=== PATIENT | male | born 1950 | race Caucasian/White ===

== ENCOUNTER 2024-07-15 08:06 | Outpatient (REF) | payer MEDICARE, SELFPAY ==
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
--- NOTE | ~2024-07-15 | MR_ITS ---
EXAMINATION: MR CERVICAL SPINE WITHOUT CONTRAST CLINICAL INFORMATION: Radiculopathy. COMPARISON: None available. TECHNIQUE: MRI of the cervical spine was obtained using routine sequences without contrast. FINDINGS: Craniocervical junction is intact. No bone marrow STIR signal abnormality. Marginal osteophyte formation and disc desiccation C6-7 and to a lesser extent C4-5, C5-6 levels. Grade 1 retrolisthesis, C3-4. Grade 1 anterolisthesis C7-T1. Buckling deformity of the thecal sac at the dorsal aspect secondary to ligamentum flavum hypertrophy, C5-6 and C6-7 levels. C2-3: No cord compression. No disc herniation. No neuroforamina stenosis. C3-4: Broad-based disc osteophyte complex formation. No cord compression. Facet joint hypertrophy. Bilateral neuroforamina narrowing right greater than the left side. C4-5: Broad-based disc osteophyte complex formation. No cord compression. Right facet joint hypertrophy. Right neuroforamina narrowing. C5-6: Central disc herniation resulting in ventral deformity of the spinal cord. No cord signal abnormality. No neuroforamina stenosis. C6-7: Broad-based disc osteophyte complex formation. Ventral deformity of the spinal cord. No cord signal abnormality. Bilateral neuroforamina stenosis. C7-T1: No disc herniation. No neuroforamina stenosis. Small cyst, left perineural. No prevertebral compartment hematoma, mass or fluid collection. Flow-void signal within the main vessels is normal. Left vertebral artery slightly dominant. MR/MR cervical spine wo con IMPRESSION: Central disc herniation C5-6 resulting in ventral spinal cord deformity without cord edema and or myelopathy. Central spinal canal stenosis C5-6 and C6-7 on a multifactorial basis. Bilateral neuroforamina narrowing, C3-4 and C6-7 and right neuroforamina and stenosis C4-5 C3-4 on a multifactorial basis Electronically signed by: Julio Chirinos MD 07/18/2024 09:10 AM EDT
== END 2024-07-15 08:07 | disposition home or self-care (01) ==
LOC: HO.MRI 08:06
PROVIDERS: PCP Physician Assistant Medical; Visit Provider Physician Assistant
DX: M54.12 Radiculopathy, cervical region (principal)
CPT/HCPCS: 72141

== ENCOUNTER → 2024-07-15 09:55 | Outpatient (BNV) | payer MEDICARE, SELFPAY | PROVIDERS: PCP Physician Assistant Medical; Visit Provider Radiology Diagnostic Radiology | DX: M50.822 Other cervical disc disorders at C5-C6 level (principal); M99.61 Osseous and subluxation stenosis of intervertebral foramina of cervical region | CPT/HCPCS: 72141 ==

== ENCOUNTER 2024-08-02 13:10 | Outpatient (REF) | payer MEDICARE, SELFPAY ==
--- NOTE | 2024-08-02 13:15 | EMG_ITS ---
Chief complaint: Numbness on left 3rd and 4th digits, numbness in left worse than right Reason for referral: Evaluate for Carpal Tunnel Syndrome Referred by: Kush VICK Procedure done: Bilateral upper extremities NCS/EMG Precautions and/or limitations: None The limb temperature was monitored continuously and remained between 32-36 degrees C during the performance of the NCS. Nerve Conduction Studies Anti Sensory Summary Table ?Stim Site NR Onset (ms) Norm Onset (ms) Peak (ms) Norm Peak (ms) O-P Amp (?V) Norm O-P Amp Site1 Site2 Delta-0 (ms) Dist (cm) Ivan (m/s) Norm Ivan (m/s) Left Median Anti Sensory (2nd Digit) Wrist ? 4.2 4.7 <3.6 1.1 >10 Wrist 2nd Digit 4.2 14.0 33 Right Median Anti Sensory (2nd Digit) Wrist ? 4.5 4.9 <3.6 1.6 >10 Wrist 2nd Digit 4.5 14.0 31 Left Radial Anti Sensory (Thumb) Forearm ? 1.7 2.3 <3.1 18.0 Forearm Thumb 1.7 0.0 Left Ulnar Anti Sensory (5th Digit) Wrist ? 2.4 3.2 <3.7 10.3 >15.0 Wrist 5th Digit 2.4 14.0 58 Right Ulnar Anti Sensory (5th Digit) Wrist ? 2.7 3.4 <3.7 13.6 >15.0 Wrist 5th Digit 2.7 14.0 52 Motor Summary Table ?Stim Site NR Onset (ms) Norm Onset (ms) O-P Amp (mV) Norm O-P Amp iAmp (mV) Amp (1st) (%) Site1 Site2 Delta-0 (ms) Dist (cm) Ivan (m/s) Norm Ivan (m/s) Left Median Motor (Abd Poll Brev) Wrist ? 4.6 <3.9 6.9 >4.5 8.1 100.0 Elbow Wrist 3.9 19.5 50 >45 Elbow ? 8.5 6.6 7.7 95.7 Right Median Motor (Abd Poll Brev) Wrist ? 5.3 <3.9 9.2 >4.5 10.7 100.0 Elbow Wrist 4.1 20.5 50 >45 Elbow ? 9.4 8.7 10.2 94.6 Left Ulnar Motor (Abd Dig Minimi) Wrist ? 2.4 <3.0 8.9 >5 11.9 100.0 B Elbow Wrist 3.9 20.0 51 >45 B Elbow ? 6.3 8.2 11.5 92.1 A Elbow B Elbow 1.5 10.0 67 >45 A Elbow ? 7.8 8.3 11.8 93.3 Right Ulnar Motor (Abd Dig Minimi) Wrist ? 3.0 <3.0 7.9 >5 11.3 100.0 B Elbow Wrist 3.5 20.5 59 >45 B Elbow ? 6.5 7.5 10.8 94.9 A Elbow B Elbow 1.6 10.0 63 >45 A Elbow ? 8.1 6.9 11.0 87.3 EMG ?Side Muscle Nerve Root Ins Act Fibs Psw Amp Dur Poly Recrt Int Pat Comment Right 1stDorInt Ulnar C8-T1 Nml Nml Nml Nml Nml 0 Nml Complete Right FlexCarRad Median C6-7 Nml Nml Nml Nml Nml 0 Nml Complete Right Biceps Musculocut C5-6 Nml Nml Nml Nml Nml 0 Nml Complete Right Triceps Radial C6-7-8 Nml Nml Nml Nml Nml 0 Nml Complete Right Deltoid Axillary C5-6 Nml Nml Nml Nml Nml 0 Nml Complete Left 1stDorInt Ulnar C8-T1 Nml Nml Nml Nml Nml 0 Nml Complete Left FlexCarRad Median C6-7 Nml Nml Nml Nml Nml 0 Nml Complete Left Biceps Musculocut C5-6 Nml Nml Nml Nml Nml 0 Nml Complete Left Triceps Radial C6-7-8 Nml Nml Nml Nml Nml 0 Nml Complete Left Deltoid Axillary C5-6 Nml Nml Nml Nml Nml 0 Nml Complete FINDINGS: Bilateral median motor nerves showed prolonged distal latency, normal amplitude and normal conduction velocity. Bilateral median sensory nerves showed prolonged peak latency and small amplitude. All other nerves tested were within normal. Concentric needle EMG was performed in selected muscles of the bilateral upper extremities. Study did not reveal signs of electric abnormalities as shown in the table above. IMPRESSION: 1. This is an abnormal study. 2. There is electrodiagnostic evidence for bilateral moderate-severe median neuropathy at the wrist, consistent with carpal tunnel syndrome. 3. There is no electrodiagnostic evidence for ulnar neuropathy, brachial plexopathy, or cervical radiculopathy. Thank you for your kind referral. Sheeba Minor MD, WILLOW Board Certified, [place] Board of [employer] Medicine and Rehabilitation (ABPMR) Board Certified, [place] Board of Electrodiagnostic Medicine (ABEM) CODIN [phone] x 2 MTDD
--- OUTSIDE RECORDS SUMMARY | 2024-08-02 15:15 | XMS_ITS | Clinical Summary ---
Author Organization [facility] Address [address] [place] [address] Care Team Providers Care Weld Fitter Name Role Phone Unavailable Primary Care Provider Unavailabl e Social History Tobacco Use Types Packs/Day Years Used Date Smoking Tobacco: Never Assessed Sex and Gender Information Value Date Recorded Sex Assigned at Not on file Gender Identity Not on file Sexual Orientation Not on file Job Start Date Occupation Industry Not on file Not on file Not on file Plan of Treatment Health Maintenance Due Date Last Done Comments Hepatitis C Screening 1950 Depression Screening 1961 Preventative Health Evaluation 10/16/1967 Colon Cancer Screening (Colonoscopy) 1994 DTap / Tdap / Td (1 - Tdap) 02/18/2007 02/17/2007, 0 12/11/2002 Fall Risk Assessment 2014 COVID-19 Vaccine ( season) 2023 09/02/2022, 12/31/2021, 09/04/2021, Additional history exists Influenza Vaccine (#1) 2023 , 12/22/2021, 01/11/2021, Additional history exists Shingrix-Zoster Vaccine Completed 03/14/2018, 01/10 RSV Adult > 60+ Yrs or Completed 02/16/2023 Pneumococcal Vaccine Completed 03/11/2023, 12/03/2016, 12/02/2015 Hepatitis B Vaccines Aged Out No long er eligible based on patient's age to complete this topic RSV Ped < 20 months Aged Out No longe r eligible based on patient's age to complete this topic
== END 2024-08-02 13:11 | disposition home or self-care (01) ==
LOC: HO.NEURO 13:10
PROVIDERS: PCP Physician Assistant Medical; Visit Provider Physician Assistant
DX: G56.13 Other lesions of median nerve, bilateral upper limbs (principal)
CPT/HCPCS: 95860; 95886; 95911

== ENCOUNTER → 2024-08-02 13:16 | Outpatient (BNV) | payer MEDICARE, SELFPAY | PROVIDERS: PCP Physician Assistant Medical; Visit Provider Physical Medicine & Rehabilitation | DX: G56.03 Carpal tunnel syndrome, bilateral upper limbs (principal) | CPT/HCPCS: 95886; 95911 ==

== ENCOUNTER 2024-12-12 14:42 | Outpatient (AMB) | payer MEDICARE, OTHER, SELFPAY ==
--- OUTSIDE RECORDS SUMMARY | 2024-12-12 16:03 | XMS_ITS | Clinical Summary ---
Author Organization [facility] Address [address] [place] [address] Care Team Providers Care Eyeglass Frame Truer Name Role Phone Unavailable Primary Care Provider [...] 09/04/2021, Additional history exists Influenza Vaccine (#1) 2024 , 12/22/2021, 01/11/2021, Additional history exists Shingrix-Zoster [...]
== END 2024-12-12 14:49 | disposition home or self-care (01) ==
LOC: HO.HMGAL 14:42
PROVIDERS: PCP Physician Assistant Medical; Visit Provider Registered Nurse Emergency
DX: J30.89 Other allergic rhinitis (principal)
CPT/HCPCS: 95117; 95165

== ENCOUNTER 2025-01-10 11:39 | Outpatient (AMB) | payer MEDICARE, OTHER, SELFPAY ==
--- OUTSIDE RECORDS SUMMARY | 2025-01-10 15:01 | XMS_ITS | Clinical Summary ---
Author Organization [employer] [facility] Address [address] [place] [address] Care Team Providers Care Residential Property Manager Name Role Phone Unavailable Primary Care Provider [...] Risk Assessment 2014 COVID-19 Vaccine ( season) 2024 09/02/2022, 12/31/2021, 09/04/2021, Additional history exists Influenza [...]
== END 2025-01-10 11:40 | disposition home or self-care (01) ==
LOC: HO.HMGAL 11:39
PROVIDERS: PCP Internal Medicine; Visit Provider Registered Nurse Emergency
DX: J30.89 Other allergic rhinitis (principal)
CPT/HCPCS: 95117; 95165

== ENCOUNTER 2025-02-14 11:27 | Outpatient (AMB) | payer MEDICARE, OTHER, SELFPAY ==
--- OUTSIDE RECORDS SUMMARY | 2025-02-14 15:47 | XMS_ITS | Clinical Summary ---
Author Organization [facility] Address [address] [place] [address] Care Team Providers Care Copywriter Name Role Phone Unavailable Primary Care Provider [...]
== END 2025-02-14 11:31 | disposition home or self-care (01) ==
LOC: HO.HMGAL 11:27
PROVIDERS: PCP Internal Medicine; Visit Provider Registered Nurse Emergency
DX: J30.89 Other allergic rhinitis (principal)
CPT/HCPCS: 95117; 95165

== ENCOUNTER 2025-03-21 12:38 | Outpatient (AMB) | payer MEDICARE, OTHER, SELFPAY ==
--- OUTSIDE RECORDS SUMMARY | 2025-03-21 15:38 | XMS_ITS | Clinical Summary ---
Author Organization [facility] Address [address] [place] [address] Care Team Providers Care Recyclable Products Sorter Name Role Phone Unavailable Primary Care Provider [...]
== END 2025-03-21 12:38 | disposition home or self-care (01) ==
LOC: HO.HMGAL 12:38
PROVIDERS: PCP Internal Medicine; Visit Provider Registered Nurse Emergency
DX: J30.89 Other allergic rhinitis (principal)
CPT/HCPCS: 95117; 95165

== ENCOUNTER 2025-03-27 14:12 | Outpatient (AMB) | payer MEDICARE, OTHER, SELFPAY ==
[2025-03-27 14:17] VITALS: BMI 24.0
--- NOTE | 2025-03-27 14:17 | A.PHYSOV_ITS ---
Vital Signs 03/27/25 14:17 Height 5 ft 8 in Weight 158 lb BMI 24.0 Intake Visit Reasons: NPV VMA Ref- cervical radiculopathy Intake Note: Patient is a 74 year old male here for a follow up today regarding pain upper extremities. Online Media Buyer Required: No Allergies No Known Allergies Allergy (Verified 03/27/25 14:20) HPI Comments Details: History of Present Illness The patient is a 74 year old individual presenting with worsening symptoms, thought to be carpal tunnel syndrome, which are not getting better. The patient was initially seen by a PA who suspected carpal tunnel syndrome and provided wrist braces. The patient is active and works outdoors, and notes that symptoms can migrate to the elbows with overexertion. Symptoms have progressed to the point of disturbing sleep, requiring the patient to sleep on their back to avoid discomfort in the arms. Symptoms are particularly bad at night and upon waking in the morning, with a sensation of numbness and the hand feeling like a tourniquet was around the wrist. The patient continues to use wrist braces at night to prevent the hands from getting into a twisted position. Previous workup includes an MRI of the neck, which showed some compression, and an EMG, which confirmed a diagnosis of moderate to severe carpal tunnel syndrome. The patient did not return for a follow-up appointment after these tests were completed. The patient reports that symptoms were not severe for a while but worsened over the summer. Past medical history is negative for diabetes. The patient has a history of environmental allergies and receives allergy shots. Pain Description - Location and Radiation: The pain is primarily in the hands and fingers, sometimes migrating to the elbows with overactivity. - Quality and Character: The patient describes numbness in the fingertips and a sensation like a tourniquet around the wrists, particularly in the morning. - Onset and Timing: Symptoms are worse at night, disrupting sleep, and in the morning upon waking. - Exacerbating Factors: Symptoms are worsened by overdoing physical activity, such as yard work. - Relieving Factors: The patient wears wrist braces to bed. - Interference with ADLs: Symptoms interfere with sleep, forcing the patient to sleep flat on their back. - Associated Symptoms: The patient also reports occasional mild tension along the back left side of the neck. Procedure: Bilateral carpal tunnel injection 03/27/2025 PFSH Surgical History Hydrocele H/O hernia repair Social History Alcohol intake: current Alcohol intake frequency: does not drink Patient Tobacco Use Status: Never used Tobacco Review of Systems Narrative Review of Systems - Musculoskeletal: Reports pain in hands and fingers that can migrate to the elbows. - Neurological: Reports numbness in fingertips and a tourniquet-like sensation around the wrists, which is worse at night and in the mornings. - Constitutional: Denies being diabetic. - Allergy/Immunology: Reports environmental allergies. Physical Exam Exam Exam: Physical Exam Cervical Spine: Examination of the cervical spine, there is no visible swelling or deformity. He is nontender to palpation. Full range of motion of the cervical spine. Special Tests: Axial Compression test: Negative Spurlings test: Negative Lhermitte's sign is Negative Upper Extremities: Full range of motion bilateral upper extremities. Equal way inspector strength bilaterally. Positive Tinel test bilaterally. Neuro: Sensation: Intact to upper extremities bilateral to light touch Strength C5 (Elbow Flexion): 5/5 on the left and 5/5 on the right. C6 (Elbow Ext): 5/5 on the left and 5/5 on the right. C7 (Elbow Ext): 5/5 on the left and 5/5 on the right. C8 (Finger Flex): 5/5 on the left and 5/5 on the right. T1 (Finger Abd/Add): 5/5 on the left and 5/5 on the right. DTR: C5 (Biceps): Left 2 Right 2 C6 (Brachioradialis): Left 2 Right 2 C7 (Triceps): Left 2 Right 2 Mena sign: Negative No pathologic clonus. No involuntary movement. Vital Signs: BMI result Body Mass Index 24.0 Office Procedures AMB Carpal Tunnel Injection AMB Carpal Tunnel Injection Details: Bilateral Carpal tunnel injection. Patient was educated about the risks, complications and benefits of the procedure including but not limited to increased serum glucose, infection, nerve damage, bleeding, tendon/ligament damage and pain. Patient's questions were answered. Verbal consent was obtained. I cleansed the volar aspect of the wrist in line with the fourth digit, 1 cm proximal to the crease of the left wrist with Betadine, 20 mg of Kenalog was injected into the carpal tunnel with a 25-gauge needle. Patient denied any paresthesia. The patient tolerated the procedure well without immediate complication. Patient was cleansed with alcohol prep and a Band-Aid was applied. The procedure was repeated on the right. Carpal Tunnel Injection -: Bilateral All charges added?: Procedure code (CPT) selection complete Office Meds Kenalog 40 mg/mL suspension for injection Performing Provider: NICANOR Reich Performing Location: [facility] Administered by: NICANOR Reich on 03/27/25 15:22 Dose Route Admin Location Dispensed Lot Number Expiration Date ND Data Support Analyst 20 mg intra-articular 1 mL [address]-0 [employer] Total Dispensed Waste 1 mL 50 % Assessment & Plan Assessment & Plan (1) Cervical radiculopathy: Code(s): M54.12 - Radiculopathy, cervical region Category: Medical (2) Cervical spondylosis: Code(s): M47.812 - Spondylosis without myelopathy or radiculopathy, cervical region Category: Medical (3) Carpal tunnel syndrome: Code(s): G56.00 - Carpal tunnel syndrome, unspecified upper limb Category: Medical Qualifiers: Laterality: bilateral Qualified Code(s): G56.03 - Carpal tunnel syndrome, bilateral upper limbs Plan Pain Management - Affect: Pain and numbness disrupt the patient's sleep. - Analgesia: The patient uses wrist braces at night as a non-pharmacologic intervention. - Activities of Daily Living: The patient remains active with outdoor work, but this can exacerbate symptoms. Plan Patient was informed and verbally consented to the use of an ambient scribe for clinic note documentation during this visit. 1. Bilateral Carpal Tunnel Syndrome The patient presents with symptoms and EMG findings consistent with moderate to severe carpal tunnel syndrome, which is the most likely cause of the hand numbness and pain, especially at night. While a pinched nerve in the neck is a possibility given the MRI findings, it is clinically preferable to first treat the peripheral nerve entrapment in the wrist as it is safer and will help clarify the source of the symptoms. Bilateral carpal tunnel injections with a steroid will be performed today to decrease inflammation around the median nerve. The patient was informed of the risks, including infection, bleeding, and nerve damage, and provided consent. Follow-up is scheduled in one to two months to assess the degree of symptom improvement and determine if further treatment for other potential pain generators, such as the neck or shoulders, is necessary. 2. Cervical Spondylosis The patient's neck MRI shows multilevel degenerative changes, including disc bulges and arthritis, but there is no obvious pinched nerve to clearly explain the arm symptoms. It is difficult to differentiate symptoms originating from the neck versus the wrist at this time. Intervention for the neck will be deferred at this time. The plan is to employ a layered approach, first treating the confirmed bilateral carpal tunnel syndrome and then reassessing any residual symptoms that may be attributable to the cervical spine. Discussion Notes I had a detailed discussion with the patient regarding the diagnostic dilemma of differentiating neck versus wrist pathology. I explained that while the patient's neck MRI does show pathology, the clinical picture and EMG results are strongly indicative of moderate to severe carpal tunnel syndrome. I recommended starting treatment with bilateral carpal tunnel injections, explaining that this is a safer initial approach than neck injections and will help clarify the primary source of the symptoms. I reviewed the risks of the procedure, including infection, bleeding, and nerve damage, and noted the benefit of potential symptom relief. I informed the patient that only a steroid would be used, without a local anesthetic, so there would be no immediate numbness affecting the patient's ability to drive. The patient understood the rationale and consented to proceed with both injections today. I emphasized the importance of returning for follow-up in one to two months to assess the outcome and plan the next steps. Patient Instructions - Today you will receive steroid injections in both of your wrists to help with your hand pain and numbness. - These injections reduce swelling around the nerve and should help your symptoms. - You may have some soreness in your wrists after the shots, similar to getting a shot in your shoulder. - There is a small risk of infection, bleeding, or nerve damage with this procedure. - Please schedule a follow-up appointment in about one to two months to see how you are doing and plan our next steps. - It is very important that you come to your follow-up visits so that we can effectively manage your condition. Orders: Orders AMB Carpal Tunnel Injection Today G56.00 - Carpal tunnel syndrome, unspecified upper limb Coding Level of Care Code Tele Est Pt Level 3 (26490) Diagnoses Cervical radiculopathy M54.12 Cervical spondylosis M47.812 Bilateral carpal tunnel syndrome G56.03 Laterality: bilateral CPT Codes AMB Carpal Tunnel Injection - Carpal Tunnel Therapeutic Injection - : Bilateral ([id number])
--- OUTSIDE RECORDS SUMMARY | 2025-03-27 16:14 | XMS_ITS | Continuity of Care Document ---
Author Organization [facility], Main Office Address [address] [facility] [place] [address] [place] [address] Care Team Providers Care Toll Test Desk Worker Name Role Phone RAGHAV BROCK Primary Care Provider SHAWNEE GALLAGHER Assistant To The Director JADIEL HILL Ui Developer Designer [phone] DAYTON GUADARRAMA Urologist ROJELIO BARRY Urologist MELLISA SANCHEZ Passenger Solicitor [facility] Referring Provider [phone] Assessment No assessment recorded. Plan of Treatment Reminders Order Date Submit Date Provider Last Modified By Organization Details Last Modified Time Details Appointments [id number] 2025 10:30A M Rahgav spangler MD Not available Not available Not available Lab None recorded. Referral behaviora l health referral 2024 025 [facility], [address] [place], [address], 03/20/2025 16:45:25 Procedures None recorded. Surgeries None recorded. Imaging None recorded. Medication Orders None recorded. Patient TargetsNo targets recorded. Patient InstructionsNo instructions recorded. Reason for Referral Behavioral Health Referral f or Difficulty coping Referring Physician: Raghav Brock, Family Medicine, Encounter Date: 03/20/2025 Problems Name Problem SNOMED Code Status Onset Date Resolution Date Notes Provider Name and Address Organization Details Recorded Time Onychomy cosis 344827386 Active Not Available [facility] 0 11:38:13 Atherosc lerosis Active Not Available [facility] 0 11:38:13 Suspecte d COVID-19 107569917 Completed 02/18/2021 Removal Reason: Problem added by user [email or web address] from the COVID-19 watch flag [facility] 1 13:35:14 General examinat ion of patient Completed 200711/14/2013 RECORDED 09/02/19 08 9:24AM BY RAGHAV JOHNSON MD, ANNOTATI ON/ADDEN DUM Not Available [facility] 4 14:12:59 Administ ration of bacteria l and viral vaccine Completed 200711/14/2013 RECORDED 09/02/19 08 9:24AM BY RAGHAV JOHNSON MD, ANNOTATI ON/ADDEN DUM Not Available [facility] 4 14:12:59 Administ ration of diphther ia and tetanus vaccine Completed 200711/14/2013 RECORDED 09/02/19 08 9:24AM BY RAGHAV JOHNSON MD, ANNOTATI ON/ADDEN DUM Not Available [facility] 4 14:12:59 General examinat ion of patient Completed 200712/04/2013 RECORDED 09/02/19 08 9:24AM BY RAGHAV JOHNSON MD, ANNOTATI ON/ADDEN DUM Not Available [facility] 4 06:36:52 Administ ration of bacteria l and viral vaccine Completed 200712/04/2013 RECORDED 09/02/19 08 9:24AM BY RAGHAV JOHNSON MD, ANNOTATI ON/ADDEN DUM Not Available [facility] 4 06:36:52 Administ ration of diphther ia and tetanus vaccine Completed 200712/04/2013 RECORDED 09/02/19 08 9:24AM BY RAGHAV JOHNSON MD, ANNOTATI ON/ADDEN DUM Not Available [facility] 4 06:36:52 Inguinal hernia 412041055 Completed 200811/14/2013 RESOLVED DATE: 09/13/19 09; RECORDED 09/13/19 09 5:17PM BY RAGHAV JOHNSON MD, ANNOTATI ON/ADDEN DUM Not Available [facility] 4 14:12:59 Inguinal hernia 335252921 Completed 200812/04/2013 RESOLVED DATE: 09/13/19 09; RECORDED 09/13/19 09 5:17PM BY RAGHAV JOHNSON MD, ANNOTATI ON/ADDEN DUM Not Available [facility] 4 06:36:52 Hyperlip idemia 96949645 Completed 200911/14/2013 RECORDED 11/12/19 10 1:09PM BY ROSIE OTOOLE MA, ANNOTATI ON/ADDEN DUM [facility] 8 09:01:30 Hyperlip idemia 54584751 Completed 200912/04/2013 RECORDED 11/12/19 10 1:09PM BY ROSIE OTOOLE MA, ANNOTATI ON/ADDEN DUM EMMIE Aguirre, [facility] 8 09:01:30 Lateral epicondy litis 889523441 Completed 201111/14/2013 RECORDED 12/16/19 12 12:55PM BY LASHAE TAYLOR ON/ADDEN DUM Not Available [facility] 4 14:12:59 Eruption [id number] Completed 201111/14/2013 RECORDED 12/16/19 12 12:54PM BY NINA TAYLORATI ON/ADDEN DUM Not Available [facility] 4 14:12:59 Adult health examinat ion Completed 201111/14/2013 RECORDED 12/16/19 12 12:54PM BY JEANIE LYN I ANNOTATI ON/ADDEN DUM Not Available [facility] 4 14:12:59 Lateral epicondy litis 052796636 Completed 201112/04/2013 RECORDED 12/16/19 12 12:55PM BY JEANIE SCHULTZK I, ANNOTATI ON/ADDEN DUM Not Available [facility] 4 06:36:52 Eruption [id number] Completed 201112/04/2013 RECORDED 12/16/19 12 12:54PM BY NINA TAYLORATI ON/ADDEN DUM Not Available [facility] 4 06:36:52 Adult health examinat ion Completed 201112/04/2013 RECORDED 12/16/19 12 12:54PM BY NINA TAYLORATI ON/ADDEN DUM Not Available [facility] 4 06:36:52 Influenz a vaccine needed [id number] 06 Completed 201311/14/2013 RECORDED 05/03/19 14 11:14AM BY RITCHIE HERNANDEZ MA, ANNOTATI ON/ADDEN DUM Not Available [facility] 4 14:12:59 Administ ration of diphther ia, pertussi s, and tetanus vaccine Completed 201311/14/2013 RECORDED 05/03/19 14 11:14AM BY RITCHIE HERNANDEZ MA, ANNOTATI ON/ADDEN DUM Not Available [facility] 4 14:13:00 Influenz a vaccine needed [id number] 06 Completed 201312/04/2013 RECORDED 05/03/19 14 11:14AM BY RITCHIE HERNANDEZ MA, ANNOTATI ON/ADDEN DUM Not Available [facility] 4 06:36:52 Administ ration of diphther ia, pertussi s, and tetanus vaccine Completed 201312/04/2013 RECORDED 05/03/19 14 11:14AM BY RITCHIE HERNANDEZ MA, ANNOTATI ON/ADDEN DUM Not Available [facility] 4 06:36:53 Hyperpla bessy of prostate 613216582 Completed 201302/23/2019 Raghav Brock MD [address] [facility] [address], [place], [address] , [facility] 9 14:55:02 Urinary tract obstruct ion 3061021 Completed 201304/10/2021 Removal Reason: John Brock MD [address], [place], [address] , [facility] 1 10:13:38 Benign prostati c hyperpla bessy 848584198 Active 2013 Bx was normal. Not Available [facility] 0 11:38:13 Lower urinary tract symptoms 391102253 Completed 201304/10/2021 Removal Reason: John Brock MD [address], [place], [address] , [facility] 1 10:13:29 Gastroes ophageal reflux disease 955839038 Completed 201311/14/2013 IMPRESSI ON: NEW ONSET GERD IN 62 YO. FURTHER ASSESSME NT BY GI, MAY NEED ENDOSCOP Y.; RECORDED 06/14/19 14 8:50AM BY JEANIE LYN I, ANNOTALLYSSA ON/ADDEN DUM Not Available [facility] 4 14:12:59 Pure hypercho lesterol emia 949111981 Completed 201311/26/2016 IMPRESSI ON: GOOD CONTROL WITH CURRENT MGMT; CONTINUE W/O CHANGE.; RECORDED 06/14/19 14 9:55AM BY RAGHAV JOHNSON MD, OFFICE VISIT Raghav Brock MD [address] [facility] [address], [place], [address] , [facility] 7 12:41:31 Patient status finding 091327135 Completed 201307/30/2014 RECORDED 06/14/19 14 9:16AM BY JEANIE LYN I, OFFICE VISIT Raghav Brock MD [address] [address], [place], [address] , [facility] 5 11:32:30 Hyperlip idemia 85480633 Completed 201307/30/2014 RECORDED 06/14/19 14 9:15AM BY JEANIE LYN I, OFFICE VISIT Lore Dotson MA null, [facility] 8 09:01:30 Gastroes ophageal reflux disease 439426861 Completed 201312/04/2013 IMPRESSI ON: NEW ONSET GERD IN 62 YO. FURTHER ASSESSME NT BY GI, MAY NEED ENDOSCOP Y.; RECORDED 06/14/19 14 8:50AM BY LASHAE TAYLOR ON/LI MCFADDEN Not Available [facility] 4 06:36:52 Chest pain 33901372 Completed 201312/06/[address] [facility] [address], [place], [address] , [facility] 5 09:28:08 Screenin g for malignan t neoplasm of colon Completed 201307/30/2014 RECORDED 07/25/19 14 2:01PM BY IVETH BORGES, HISTORIC AL SUMMARY Raghav Brock MD [address], [place], [address] , [facility] 5 11:32:30 Hyperlip idemia 65859189 Active 2016 Not Available [facility] 0 11:38:13 History of SARS-CoV -2 [id number] 7490344 Active 2021 Raghav Brock MD [address], [place], [address] , [facility] 3 11:25:05 Tendinit is of wrist 360805765 Active 2024 Tucker Olivo PA-C [address], [place], [address] , [facility] 5 20:36:44 Cervical radiculo maribel 54692947 Active 2024 Tucker Olivo PA-C [address], [place], [address] , [facility] 5 10:04:08 Chest pain 82719165 Active 2024 Rosaura Reaves, [facility] [address], [place], [address] , [facility] 5 09:28:08 Chest wall pain 161236272 Active 2024 Rosaura Reaves, [facility] [address], [place], [address] , [facility] 5 09:40:01 Bilatera l carpal tunnel syndrome [id number] 990291 Active 2024 Tucker Olivo PA-C [address], [place], [address] , [facility] 5 12:56:49 Problem Notes None recorded. Procedures Surgical History Date Name Laterality Status Provider Name and Address Organization Details Recorded Time 11/19/19 24 Colonoscopy completed Brianna Ashraf [facility] 11/19/2023 13:25:52 04/15/20 23 Advanced Care Planning completed Raghav Brock MD [address], [place], [address], [facility] 04/16/2023 12:10:31 02/29/20 20 Six-Item Cognitive Test completed Iesha Lagunas [place] [facility] 02/29/2020 13:08:01 02/24/20 19 Mini-Cog Test completed Jeanie Velazquez [facility] 02/23/2019 14:14:54 12/07/19 18 Mini-Cog Test completed Lore Dotson MA [facility] 12/06/2017 09:06:18 12/04/19 17 Fall Risk Assessment completed Jeanie Velazquez [facility] 12/03/2016 10:25:02 12/04/19 17 Mini-Cog Test completed Jeanie Velazquez [facility] 12/03/2016 10:25:07 12/02/19 16 Fall Risk Assessment completed Lore Dotson [place] [facility] 12/02/2015 14:39:00 12/02/19 16 Mini-Cog Test completed Lore Mccannsharlene EMMIE [facility] 12/02/2015 14:39:07 12/02/19 16 Advanced Care Planning completed Lore Saxenakendall EMMIE [facility] 12/02/2015 14:28:50 Hernia Repair completed Raghav Brock MD [address] [address], [place], [address], [facility] 07/30/2014 11:36:27 Hydrocele Repair completed Jeanie Velazquez [facility] 04/27/2017 14:13:31 Imaging Results None recorded. Procedure Notes None recorded. Medical Equipment None Reported. Allergies No known drug allergies Medications Name Sig Start Date Stop Date Status Note LastModified by Organization Details LastModified Time atorvasta tin 40 mg tablet TAKE 1 TABLET BY MOUTH DAILY active Not Available Not Available No t Available prednison e 10 mg tablet TAKE 1 TABLET BY MOUTH TWICE DAILY FOR 3 DAYS 04/21 completed Not Available Not Available Not Available doxycycli ne hyclate 100 mg capsule TAKE 1 CAPSULE BY MOUTH TWICE DAILY FOR 10 DAYS 04/21 completed Not Available Not Available Not Available azithromy maggie 250 mg tablet 12/03 completed Not Available Not Available Not Available prednison e 20 mg tablet 1 tablet every day by oral route. 12/03 completed Not Available Not Available Not Available lovastati n 40 mg tablet 1 daily 12/03 completed Not Available Not Available Not Available sildenafi l 100 mg tablet TAKE DIRECTED 1 TO 2 HOURS PRIOR TO INTERCOU RSE active Not Available Not Available No t Available triamcino lone acetonide 0.1 % topical cream APPLY A THIN LAYER TO THE AFFECTED AREA(S) BY TOPICAL ROUTE 2 TIMES PER DAY 12/06 completed Not Available Not Available Not Available terbinafi ne HCl 250 mg tablet Take 1 tablet every day by oral route. 12/06 completed Not Available Not Available Not Available tamsulosi n 0.4 mg capsule TAKE 1 CAPSULE BY MOUTH AT BEDTIME active Not Available Not Available No t Available erythromy maggie 5 mg/gram (0.5 %) eye ointment 12/06 completed Not Available Not Available Not Available triamcino lone acetonide 55 mcg nasal spray aerosol USE 1 SPRAY IN EACH NOSTRIL DAILY FOR 14 DAYS 06/19 completed Not Available Not Available Not Available gabapenti n 100 mg capsule TAKE 1 CAPSULE BY MOUTH THREE TIMES DAILY NEEDED 02/26 completed Not Available Not Available Not Available methylpre dnisolone 4 mg tablets in a dose pack 12/03 completed Not Available Not Available Not Available albuterol sulfate HFA 90 mcg/actua tion aerosol inhaler INHALE 1 PUFF BY MOUTH THREE TIMES DAILY NEEDED FOR COUGH FOR THE FIRST 3 DAYS THEN NEEDED FOR 10 DAYS 06/19 completed Not Available Not Available Not Available fluticaso ne propionat e 50 mcg/actua tion nasal spray,tate pension 1 spray each nostril daily active as needed Not Available Not Available Not Available doxycycli ne hyclate 100 mg tablet 1 tablet twice a day by oral route. 12/03 completed Not Available Not Available Not Available finasteri de 5 mg tablet TAKE 1 TABLET BY MOUTH AT BEDTIME active Not Available Not Available No t Available amoxicill in 875 mg-potass ium clavulana te 125 mg tablet Take 1 tablet every 12 hours by oral route for 10 days. 12/06 completed Not Available Not Available Not Available neomycin 3.5 mg/g-poly myxin B 10,000 unit/g-de xameth 0.1 % eye oint AFTER HOT PACK AND MASSAGE APPLY 1/4 INCH STRIP TO RIGHT EYE 3 TO 4 TIMES A DAY DIRECTED 04/14 completed Not Available Not Available Not Available Adult Aspirin 81 mg tablet Take 1 tablet every day by oral route. active Not Available Not Available No t Available Fish Oil TWO TIMES DAILY 05/03 completed RECORDED 05/03/19 14 11:18AM BY RITCHIE HERNANDEZ MA, OFFICE VISIT; Not Available Not Available Not Available Flomax active RECORDED 09/07/19 08 5:06PM BY RAGHAV JOHNSON MD, ANNOTATI ON/LI MCFADDEN;DR. SÁNCHEZ Not Available Not Available Not Available Glucosami ne Complex 1 PO BID active Not Available Not Available Not Available Zostavax (PF) 19,400 unit/0.65 mL subcutane ous suspensio n ONE TIME DOSE 12/16 completed RECORDED 12/25/19 12 12:10PM BY RAGHAV JOHNSON MD, MEDICATI ON AUTO-WILIAN CTIVATIO N; Not Available Not Available Not Available GaviLyte- G 236 gram-22.7 4 gram-6.74 gram-5.86 gram oral solution DRINK 8 OUNCES BY MOUTH DIRECTED 04/21 completed Not Available Not Available Not Available Multivita min With Fluoride 1 PO DAILY active Not Available Not Available No t Available Fluzone High-Dose 2014- (PF) 180 mcg/0.5 mL intramusc ular syringe active Not Available Not Available Not Available Fluzone High-Dose 3537-0203 (PF) 180 mcg/0.5 mL intramusc ular syringe 12/03 completed Not Available Not Available Not Available Fluzone High-Dose 1179-6266 (PF) 180 mcg/0.5 mL intramusc ular syringe 12/06 completed Not Available Not Available Not Available Fluzone High-Dose Quad (PF) 240 mcg/0.7 mL IM syringe ADM 0.7ML IM UTD 02/28 completed Not Available Not Available Not Available BinaxNOW COVID-19 Ag Self Test kit TEST DIRECTED TODAY 04/14 completed Not Available Not Available Not Available Vitals Date Recorded Body height Body mass index (BMI) Body weight Heart rate Oxygen saturation Body temperature Systolic And Diastolic Provider Name and Address Organization Details Last Updated DateTime 5 171.45 cm 25.2 kg/m2 83993.5 6 g 92 /min 96 % 98.2 [degF] 138/86 mm[Hg] Nannette Robb MA [facility] 5 15:36:08 Social History Question Answer Notes LastModified by Organizat ion Details LastModified Time Tobacco Smoking Status Never Smoker Not Available [facility] 02/27/2020 03:36:35 Do You Have An Advance Directive? No [id number] Information not available 02/27/2020 Is Blood Transfusion Acceptable In An Emergency? Yes [id number] Information not available 02/27/2020 What Is Your Level Of Caffeine Consumption? Moderate Tea [id number] Information not available 02/27/2020 How Much Tobacco Do You Chew? None [id number] Information not available 02/27/2020 What Type Of Diet Are You Following? REGULAR [id number] Information not available 02/27/2020 Which Illicit Or Recreational Drugs Have You Used? None [id number] Information not available 02/27/2020 Live Alone Or With Others? With Others (Batsheva) [email or web address] Information not available 07/30/2014 Do You Take Precautions To Prevent Distracted Driving? Yes Information not available 12/02/2015 How Often Do You Need To Have Someone Help You When You Read Instructions, Pamphlets, Or Other Written Material From Your Doctor Or Pharmacy? Never Information not available 12/02/2015 Have You Served In The ? No [email or web address] Information not available 12/03/2016 Have You Or Anyone In Your Household Had Any Of The Following Symptoms In The Last 14 Days: Sore Throat, Cough, Chills, Body Aches For Unknown Reasons, Shortness Of Breath For Unknown Reasons, Loss Of Smell, Loss Of Taste, Fever At Or Greater Than 100 Degrees Fahrenheit? No Information not available 02/29/2020 Are You Or Anyone In Your Household A Health Care Provider Or Emergency Responder? No [email or web address] Information not available 02/29/2020 To The Best Of Your Knowledge Have You Been In Close Proximity To Any Individual Who Tested Positive For COVID-19? No [email or web address] Information not available 02/29/2020 What Was The Date Of Your Most Recent Tobacco Screening? 04/21/2024 [email or web address] Information not available 04/21/2024 How Many Children Do You Have? 0 [id number] Information not available 02/27/2020 Do You Use Protection During Sex? No [id number] Information not available 02/27/2020 Seat Belts Used Routinely Yes Information not available 12/02/2015 Are You Sexually Active? Yes [id number] Information not available 02/27/2020 Smoke Alarm In Home Yes Information not available 12/02/2015 At What Age Did You Start Smoking Tobacco? 1 [id number] Information not available 02/27/2020 Are You Passively Exposed To Smoke? No Information not available 12/02/2015 How Much Tobacco Do You Smoke? No [id number] Information not available 02/27/2020 Do You Use Sunscreen Routinely? Yes [id number] Information not available 02/27/2020 How Many Years Have You Smoked Tobacco? 0 [id number] Information not available 02/27/2020 Sex: Unknown Functional Status Question Answer Note LastModified by Organizat ion Details LastModified Time What is your level of alcohol consumption? Occasional 2-3 beers in a week Information not available 02/29/2020 Do you or have you ever used smokeless tobacco? Never used smokeless tobacco [id number] Information not available 02/27/2020 Are you currently employed? No retired 2018 Information not available 02/29/2020 Are you able to walk independently without assistance or assistive devices? YESWOREST [email or web address] Information not available 04/15/2023 Are you able to care for yourself independently? 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 Never used electronic cigarettes [id number] Information not available 02/27/2020 What is your exercise level? Occasional [id number] Information not available 02/27/2020 Mental Status None recorded. Family History Relationship Description Onset Age of this Age Resolved Age Notes LastModified by Organization Details LastModified Time Mother Hypercholest erolemia 88 [email or web address] Not available 01/26 14:37:10 Mother Essential hypertension [email or web address] Not available 14:13:28 Mother Coronary arterioscler osis 88 [email or web address] Not available 04/27 14:13:28 Mother Alzheimer's disease 88 [email or web address] Not available 01/26 14:37:43 Father Hypercholest erolemia 83 [email or web address] Not available 03/27 14:35:17 Father Coronary arterioscler osis 83 [email or web address] Not available 04/27 14:13:28 Brother Coronary arterioscler osis 63 [email or web address] Not available 01/26 14:37:59 Sister Motor vehicle accident victim 26 [email or web address] Not available 01/26 14:38:14 Medical History Condition Response Gout N Other N Blood Diseases N Kidney Stones N Hyperthyroidism N Breast Cancer N Depression N COPD N Lung Disease N Hypothyroidism N Defects or Inherited Disease N Anesthesia Complications N Headaches/Migraines N Anxiety Disorder N Varicose Veins N Obesity N Vision or Eye Problems N Arthritis N Head Injury/Concussion N Polyps N Infertility N Congenital Anomalies N Acid Reflux (GERD) N Cancer N Stroke N ADHD N Endometriosis N High Cholesterol N Liver Disease N Fibromyalgia N Kidney Disease N Heart Problems N Ear or Hearing Problems N Hospitalizations N Thyroid Problems N GI Problems N Acne N Eating Disorder N Skin Problems N Anemia N Constipation N Bladder Problems N Mental Illness N Ovarian Cancer N Diabetes N Blood Transfusions N Seizures/Epilepsy N Tuberculosis N AIDS/HIV N Congestive Heart Failure (CHF) N Eczema N Diverticulitis N Abuse/Domestic Violence N Asthma N Allergies N Reflux/GERD N Hepatitis N Pulmonary Embolism N Hypertension N Chicken Pox N Autism Spectrum Disorder (ASD) N Osteoporosis N Immunizations Vaccine Type Date Status Note Provider Nam e and Address Organization Details Recorded Time Td (adult), 5 Lf tetanus toxoid, preservative free, adsorbed 3 [facility] 11:48:52 influenza, seasonal, intradermal, preservative free 5 completed [facility] 04/15/2023 10:53:20 Influenza, high-dose, trivalent, PF [address] [facility] 04/14/2022 13:55:24 Influenza, high-dose, trivalent, PF [address] [facility] 04/14/2022 13:55:25 zoster recombinant [address] [facility] 04/14/2022 13:55:25 Influenza, high-dose, trivalent, PF [address] [facility] 04/14/2022 13:55:25 zoster recombinant 8 completed EMMIE [place], [facility] 04/14/2022 13:55:25 Influenza, high-dose, trivalent, PF 9 completed [facility] 12/14/2019 11:48:52 Influenza, high-dose, quadrivalent, PF 0 completed EMMIE [place], [facility] 04/14/2022 13:55:24 COVID-19, mRNA, LNP-S, PF, 30 mcg/0.3 mL dose 1 completed [facility] 04/10/2021 09:08:21 COVID-19, mRNA, LNP-S, PF, 30 mcg/0.3 mL dose 1 completed [facility] 07/29/2021 14:23:56 COVID-19, mRNA, LNP-S, PF, 30 mcg/0.3 mL dose 1 completed EMMIE Horta, [facility] 04/15/2023 10:53:19 Influenza, high-dose, quadrivalent, PF 2 completed EMMIE Horta, [facility] 04/15/2023 10:53:19 Influenza, high-dose, quadrivalent, PF 1 completed EMMIE Horta, [facility] 04/15/2023 10:53:19 Influenza, high-dose, quadrivalent, PF 3 completed EMMIE Horta, [facility] 04/15/2023 10:53:19 Pneumococcal conjugate PCV20, polysaccharide [id number] conjugate, adjuvant, PF 3 completed [facility] 04/15/2023 10:53:19 COVID-19, mRNA, LNP-S, PF, 30 mcg/0.3 mL dose, cole-sucrose 2 completed EMMIE Horta, [facility] 04/15/2023 10:53:19 COVID-19, mRNA, LNP-S, bivalent, PF, 30 mcg/0.3 mL dose 3 completed [facility] 04/15/2023 10:53:19 COVID-19, mRNA, LNP-S, bivalent, PF, 30 mcg/0.3 mL dose 2 completed [facility] 04/15/2023 10:53:19 RSV, bivalent, protein subunit RSVpreF, diluent reconstituted, 0.5 mL, PF 3 completed EMMIE [facility] 10[facility]19 Influenza, high-dose, trivalent, PF 7 completed EMMIE Horta, [facility] 04/15/2023 10:53:19 Influenza, split virus, trivalent, preservative 4 completed [facility]23 10:53:19 Influenza, split virus, trivalent, preservative 0 completed [facility] 04[facility]15/2023 10:53:19 Influenza, split virus, trivalent, preservative 1 completed [facility] 04/15/2023 10:53:19 Pneumococcal conjugate PCV 13 6 completed Not Available [facility] 05/13/2019 02:21:36 COVID-19, mRNA, LNP-S, PF, cole-sucrose, 30 mcg/0.3 mL 3 [facility] 06/19/2024 15:23:23 Influenza, high-dose, trivalent, PF 4 completed Rosie Guevara MA null, [facility] 06/19/2024 15:23:23 COVID-19, mRNA, LNP-S, PF, cole-sucrose, 30 mcg/0.3 mL 4 completed Josiane Wallace null, [facility] 05/03/2024 09:25:42 COVID-19, mRNA, LNP-S, PF, cole-sucrose, 30 mcg/0.3 mL 5 completed Not Available [facility] 03/20/2025 15:27:41 Influenza, adjuvanted, trivalent, PF 5 completed Not Available [facility] 03/20/2025 15:27:41 pneumococcal polysaccharide PPV23 7 completed Not Available [facility] 05/13/2019 02:21:26 Influenza, split virus, trivalent, preservative 7 completed Josiane Wallace null, [facility] 12/14/2019 11:48:52 Td (adult), 5 Lf tetanus toxoid, preservative free, adsorbed 7 completed Josiane Wallace null, [facility] 12/14/2019 11:48:52 Influenza, split virus, trivalent, preservative 8 completed Josiane Wallace null, [facility] 12/14/2019 11:48:52 Influenza, split virus, trivalent, preservative 2 completed Josiane Wallace null, [facility] 12/14/2019 11:48:52 zoster live 2 completed EMMIE Horta, [facility] 04/15/2023 10:53:19 influenza, seasonal, intradermal, preservative free 3 completed Josiane Wallace null, [facility] 12/14/2019 11:48:52 Tdap 3 completed Josiane Wallace null, [facility] 12/14/2019 11:48:52 Td (adult), 2 Lf tetanus toxoid, preservative free, adsorbed 3 completed Raghav Brock MD [address] [address], [place], [address], [facility] [place]16/[place] 12:05:52 Past Encounters Encounter ID Performer Location Encounter Start Date Encounter Closed Date Diagnosis/Indication Diagnosis SNOMED-CT Code Diagnosis ICD10 Code Diagnosis IMO Codes Diagnosis Note [id number] Nader Paredes MD Main Office [address] [address] 02/26/2025 09:00:13 02/26/2025 10:00:20 Cervical radiculopathy 20817316 M54.12 [id number] see above - ? has cervical radiculopa thytrial c gbn 4.25 - seen by pmr - had mri, emg - f/u prn - encouraged pt to f/u if worseno tolerate gbnconside r aleve c prn tyl 11.25 - pt's sxs getting worse = advised pt to f/u c pmr Peripheral venous insufficiency 36110196 I87.2 02595 rec elevated prn, rec comp socksif worse then consider vein specialist eval Bilateral carpal tunnel syndrome [id number] G56.03 [id number] L>R - ? CTS - will get hand specialist eval 4.25 - seen by hand specialist - rev note in pvix - cont splint o/n, f/u in several weeks, consider sx if worse 11.25 - encouraged pt to f/u c hand specialist as well [id number] Raghav Brock MD Main Office [address] [phone] 03/20/2025 15:27:02 03/20/2025 16:17:23 Difficulty coping 97794176 R45.89 [id number] He has some mild depression and feels that it is secondary to dealing with his 's behavior. He is not interested in meds but instead would like to see a counselor. He contacted [facility] and was told that he needed a referral from his PCP. Health Concerns Section Related Observation LastModified by Organization Detai ls LastModified Time None Recorded Concern Status LastModified by Organization Details LastModified Time None Recorded Payers Encounter Date Sequence Insurance Name Policy Number Policy Brito Covered Member ID Brito Member ID Guarantor Name 03/20/2025 2 [employer] - PLAN 1 (MEDICARE SUPPLEMENT) [id number] 1 Donta Sarmiento Jr [id number] Donta Sarmiento 03/20/2025 1 [place] [employer] Donta Sarmiento Jr [id number] Donta Sarmiento Notes Date Note Type Note Provider Name and Address Organization Details Recorded Time 03/20/2025 text/html Her is having a difficult time coping with his 's recent behavior. He feels that she is having memory problems and has been resistant to believing this. Her mother reportedly had Alheimers disease. She refuses to talk to Donta about her memory and feels that nothing is wrong. He feels that she is more irritable and is becoming increasingly difficult to deal with. Because of this he is having a difficult time coping and would like to see a counselor. We spoke about meds and he is not interested. He called [facility] and was told that he needed a referral from his PCP. Raghav Brock MD [address] [address], [place], [phone], [facility] [place] 03/20/[place]25 17:25:00
--- OUTSIDE RECORDS SUMMARY | 2025-03-27 16:14 | XMS_ITS | Clinical Summary ---
Author Organization [employer] [facility] Address [address] [place] [address] Care Team Providers Care Aluminum Siding Applicator Name Role Phone Unavailable Primary Care Provider [...]
--- OUTSIDE RECORDS SUMMARY | 2025-03-27 16:15 | XMS_ITS | Continuity of Care Document ---
Author Organization [facility], Main Office Address [address] [facility] [address] [place] [address] Care Team Providers Care Ultimate Hoops Trainer Name Role Phone RAGHAV BROCK Primary Care Provider SHAWNEE GALLAGHER Commercial Real Estate Underwriter JADIEL HILL X Ray Equipment Tester [phone] DAYTON GUADARRAMA Urologist [phone] ROJELIO BARRY Urologist MELLISA SANCHEZ Medical Assistant [facility] Referring Provider [phone] Assessment No assessment recorded. Plan of Treatment Reminders Order Date Submit Date Provider Last Modified By Organization Details Last Modified Time Details Appointments [id number] 10:30AM Raghav spangler MD Not available Not available Not available Lab None record ed. Referral None record ed. Procedures None record ed. Surgeries None record ed. Imaging None record ed. Medication Orders None record ed. Patient TargetsNo targets recorded. Patient Instructions Encounter Date Encounter Id Patient Instructions Last Modified By Organization Details Last Modified Time 02/26/2025 [id number] varicose veins: care instructions pmadden Not available 02/26/2025 09:54:25 leg and ankle edema: care instructions pmadden Not available 02/26/2025 09:54:25 Patient will follow up and keep appointment as scheduled. pmadden Not available 02/26/2025 12:58:29 Reason for Referral None Reported. Problems Name Problem SNOMED Code Status Onset Date Resolution Date Notes Provider Name and Address Organization Details Recorded Time Onychomy cosis 940684763 Active Not Available [facility] 0 11:38:13 Atherosc lerosis Active Not Available [facility] 0 11:38:13 Suspecte d COVID-19 778490141 Completed 02/18/2021 Removal Reason: Problem added by user estrella 5 from the COVID-19 watch flag [facility] 1 13:35:14 General examinat ion of patient Completed 200711/14/2013 RECORDED 09/02/19 08 9:24AM BY RAGHAV JOHNSON MD, ANNOTATI ON/ADDEN DUM Not Available [facility] 4 14:12:59 Administ ration of bacteria l and viral vaccine Completed 200711/14/2013 RECORDED 09/02/19 08 9:24AM BY RAGHAV JOHNSON MD, ANNOTATI ON/ADDEN DUM Not Available [facility] 4 14:12:59 Administ ration of diphther ia and tetanus vaccine Completed 200711/14/2013 RECORDED 09/02/19 08 9:24AM BY RAGHAV JOHNSON MD, ANNOTATI ON/ADDEN DUM Not Available [facility] 4 14:12:59 General examinat ion of patient Completed 200712/04/2013 RECORDED 09/02/19 08 9:24AM BY RAGHAV JOHNSON MD, ANNOTATI ON/ADDEN DUM Not Available [facility] 4 06:36:52 Administ ration of bacteria l and viral vaccine Completed 200712/04/2013 RECORDED 09/02/19 08 9:24AM BY RAGHAV JOHNSON MD, ANNOTATI ON/ADDEN DUM Not Available [facility] 4 06:36:52 Administ ration of diphther ia and tetanus vaccine Completed 200712/04/2013 RECORDED 09/02/19 08 9:24AM BY RAGHAV JOHNSON MD, ANNOTATI ON/ADDEN DUM Not Available [facility] 4 06:36:52 Inguinal hernia 499526647 Completed 200811/14/2013 RESOLVED DATE: 09/13/19 09; RECORDED 09/13/19 09 5:17PM BY RAGHAV JOHNSON MD, ANNOTATI ON/ADDEN DUM Not Available [facility] 4 14:12:59 Inguinal hernia 715542377 Completed 200812/04/2013 RESOLVED DATE: 09/13/19 09; RECORDED 09/13/19 09 5:17PM BY RAGHAV JOHNSON MD, ANNOTATI ON/ADDEN DUM Not Available [facility] 4 06:36:52 Hyperlip idemia 48988891 Completed 200911/14/2013 RECORDED 11/12/19 10 1:09PM BY ROSIE OTOOLE MA, ANNOTATI ON/ADDEN DUM EMMIE Aguirre, [facility] 8 09:01:30 Hyperlip idemia 69365877 Completed 200912/04/2013 RECORDED 11/12/19 10 1:09PM BY ROSIE OTOOLE MA, ANNOTATI ON/ADDEN DUM EMMIE Aguirre, [facility] 8 09:01:30 Lateral epicondy litis 413126484 Completed 201111/14/2013 RECORDED 12/16/19 12 12:55PM BY LASHAE TAYLOR ON/ADDEN DUM Not Available [facility] 4 14:12:59 Eruption [id number] Completed 201111/14/2013 RECORDED 12/16/19 12 12:54PM BY NINA TAYLORATI ON/ADDEN DUM Not Available [facility] 4 14:12:59 Adult health examinat ion Completed 201111/14/2013 RECORDED 12/16/19 12 12:54PM BY JEANIE LYN I ANNOTATI ON/ADDEN DUM Not Available [facility] 4 14:12:59 Lateral epicondy litis 940812691 Completed 201112/04/2013 RECORDED 12/16/19 12 12:55PM BY JEANIE SCHULTZK I, ANNOTATI ON/ADDEN DUM Not Available [facility] 4 06:36:52 Eruption [id number] Completed 201112/04/2013 RECORDED 12/16/19 12 12:54PM BY JEANIE LYN I ANNOTATI ON/ADDEN DUM Not Available [facility] 4 06:36:52 Adult health examinat ion Completed 201112/04/2013 RECORDED 12/16/19 12 12:54PM BY NINA TAYLORATI ON/ADDEN DUM Not Available [facility] 4 06:36:52 Influenz a vaccine needed [id number] 06 Completed 201311/14/2013 RECORDED 05/03/19 14 11:14AM BY RITCHIE HERNANDEZ MA, ANNOTATI ON/ADDEN DUM Not Available [facility] 4 14:12:59 Administ ration of diphther ia, pertussi s, and tetanus vaccine Completed 201311/14/2013 RECORDED 05/03/19 14 11:14AM BY RITCHIE HERNANDEZ MA, ANNOTATI ON/ADDEN DUM Not Available [facility] 4 14:13:00 Influenz a vaccine needed 68435158933 06 Completed 201312/04/2013 RECORDED 05/03/19 14 11:14AM BY RITCHIE HERNANDEZ MA, ANNOTATI ON/ADDEN DUM Not Available [facility] 4 06:36:52 Administ ration of diphther ia, pertussi s, and tetanus vaccine Completed 201312/04/2013 RECORDED 05/03/19 14 11:14AM BY RITCHIE HERNANDEZ MA, ANNOTATI ON/ADDEN DUM Not Available [facility] 4 06:36:53 Hyperpla bessy of prostate 396961700 Completed 201302/23/2019 Raghav Brock MD [address] [facility] [address], [place], [address] , [facility] 9 14:55:02 Urinary tract obstruct ion 9825844 Completed 201304/10/2021 Removal Reason: John Brock MD [address], [place], [address] , [facility] 1 10:13:38 Benign prostati c hyperpla bessy 472616723 Active 2013 Bx was normal. Not Available [facility] 0 11:38:13 Lower urinary tract symptoms 199644468 Completed 201304/10/2021 Removal Reason: John Brock MD [address], [place], [address] , [facility] 1 10:13:29 Gastroes ophageal reflux disease 088682952 Completed 201311/14/2013 IMPRESSI ON: NEW ONSET GERD IN 62 YO. FURTHER ASSESSME NT BY GI, MAY NEED ENDOSCOP Y.; RECORDED 06/14/19 14 8:50AM BY JEANIE LYN I, ANNOTATI ON/ADDEN DUM Not Available [facility] 4 14:12:59 Pure hypercho lesterol emia 334595105 Completed 201311/26/2016 IMPRESSI ON: GOOD CONTROL WITH CURRENT MGMT; CONTINUE W/O CHANGE.; RECORDED 06/14/19 14 9:55AM BY RAGHAV JOHNSON MD, OFFICE VISIT Raghav Brock MD [address] [facility] [address], [place], [address] , [facility] 7 12:41:31 Patient status finding [id number] Completed 201307/30/2014 RECORDED 06/14/19 14 9:16AM BY JEANIE LYN I, OFFICE VISIT Raghav Brock MD [address] [address], [place], [address] , [facility] 5 11:32:30 Hyperlip idemia 78978126 Completed 201307/30/2014 RECORDED 06/14/19 14 9:15AM BY JEANIE LYN I, OFFICE VISIT Lore Dotson MA null, [facility] 8 09:01:30 Gastroes ophageal reflux disease 667212096 Completed 201312/04/2013 IMPRESSI ON: NEW ONSET GERD IN 62 YO. FURTHER ASSESSME NT BY GI, MAY NEED ENDOSCOP Y.; RECORDED 06/14/19 14 8:50AM BY LASHAE TAYLOR ON/LI DUM Not Available [facility] 4 06:36:52 Chest pain 12018644 Completed 201312/06/2017 Rosaura Reaves [facility] [address], [place], [address] , [facility] 5 09:28:08 Screenin g for malignan t neoplasm of colon Completed 201307/30/2014 RECORDED 07/25/19 14 2:01PM BY CHERYL DUBONIC AL SUMMARY Raghav Brock MD [address], [place], [address] , [facility] 5 11:32:30 Hyperlip idemia 46715179 Active 2016 Not Available [facility] 0 11:38:13 History of SARS-CoV -2 95131092538 6919125 Active 2021 Raghav Brock MD [address], [place], [address] , [facility] 3 11:25:05 Tendinit is of wrist 597183958 Active 2024 Tucker Olivo PA-C [address], [place], [address] , [facility] 5 20:36:44 Cervical radiculo maribel 00427269 Active 2024 Tucker Olivo PA-C [address], [place], [address] , [facility] 5 10:04:08 Chest pain 81270553 Active 2024 Rosaura Reaves, PASUP [address], [place], [address] , [facility] 5 09:28:08 Chest wall pain 380497839 Active 2024 Rosaura Reaves, PASJENNIE [address], [place], [address] , [facility] 5 09:40:01 Bilatera l carpal tunnel syndrome 41985662046 144324 Active 2024 Tucker Olivo PA-C [address], [place], [address] , [facility] 5 12:56:49 Problem Notes None recorded. Procedures Surgical History Date Name Laterality Status Provider Name and Address Organization Details Recorded Time 11/19/19 24 Colonoscopy completed Brianna Ashraf [facility] 11/19/2023 13:25:52 04/15/20 23 Advanced Care Planning completed Raghav Brock MD [address] [facility] [address], [place], [address], [facility] 04/16/2023 12:10:31 02/29/20 20 Six-Item Cognitive Test completed Iesha Lagunas MA [facility] 02/29/2020 13:08:01 02/24/20 19 Mini-Cog Test completed Jeanie Velazquez [facility] 02/23/2019 14:14:54 12/07/19 18 Mini-Cog Test completed Lore Dotson MA [facility] 12/06/2017 09:06:18 12/04/19 17 Fall Risk Assessment completed Jeanie Velazquez [facility] 12/03/2016 10:25:02 12/04/19 17 Mini-Cog Test completed Jeanie Velazquez [facility] 12/03/2016 10:25:07 12/02/19 16 Fall Risk Assessment completed Lore Dotson [place] [facility] 12/02/2015 14:39:00 12/02/19 16 Mini-Cog Test completed Lore Mccannsharlene EMMIE [facility] 12/02/2015 14:39:07 12/02/19 16 Advanced Care Planning completed Lore MccannsharleneEMMIE [facility] 12/02/2015 14:28:50 Hernia Repair completed Raghav Brock MD [address] [address], [place], [address], [facility] 07/30/2014 11:36:27 Hydrocele Repair completed Jeanie Velazquez [facility] 04/27/2017 14:13:31 Imaging Results None recorded. Procedure [...] 5:06PM BY RAGHAV JOHNSON MD, ANNOTATI ON/LI DUM;DR. SÁNCHEZ Not Available Not Available Not Available [...] Available Not Available Not Available Fluzone High-Dose 9154-7349 (PF) 180 mcg/0.5 mL intramusc ular syringe 12/03 completed Not Available Not Available Not Available Fluzone High-Dose 2159-2058 (PF) 180 mcg/0.5 mL intramusc ular syringe [...] Details Last Updated DateTime 5 171.45 cm 24.8 kg/m2 90006.3 7 g 74 /min 95 % 98 [degF] 130/79 mm[Hg] Nannette Robb MA [facility] 5 09:06:55 Social History Question Answer Notes LastModified by Organizat ion Details LastModified Time Tobacco Smoking Status Never Smoker Not Available [facility] 02/27/2020 03:36:35 Do You Have An Advance Directive? No [id number] Information not available 02/27/2020 Is Blood Transfusion Acceptable In An Emergency? Yes [id number] Information not available 02/27/2020 What Is Your Level Of Caffeine Consumption? Moderate Tea [id number] Information not available 02/27/2020 How Much Tobacco Do You Chew? None [id number] Information not available 02/27/2020 What Type Of Diet Are You Following? REGULAR [id number] Information not available 02/27/2020 Which Illicit Or Recreational Drugs Have You Used? None [id number] Information not available 02/27/2020 Live Alone Or [...] Health Care Provider Or Emergency Responder? No [email or web address] Information not available 02/29/2020 To The Best Of Your Knowledge Have You Been In Close Proximity To Any Individual Who Tested Positive For COVID-19? No [email or web address] Information not available 02/29/2020 What Was The Date Of Your Most Recent Tobacco Screening? 04/21/2024 [email or web address] Information not available 04/21/2024 How Many Children Do You Have? 0 [id number] Information not available 02/27/2020 Do You Use Protection During Sex? No [id number] Information not available 02/27/2020 Seat Belts Used Routinely Yes Information not available 12/02/2015 Are You Sexually Active? Yes [id number] Information not available 02/27/2020 Smoke Alarm In Home Yes Information not available 12/02/2015 At What Age Did You Start Smoking Tobacco? 1 [id number] Information not available 02/27/2020 Are You Passively Exposed To Smoke? No Information not available 12/02/2015 How Much Tobacco Do You Smoke? No [id number] Information not available 02/27/2020 Do You Use Sunscreen Routinely? Yes [id number] Information not available 02/27/2020 How Many Years Have You Smoked Tobacco? 0 [id number] Information not available 02/27/2020 Sex: Unknown Functional Status Question Answer Note LastModified by Organizat ion Details LastModified Time What is your level of alcohol consumption? Occasional 2-3 beers in a week Information not available 02/29/2020 Do you or have you ever used smokeless tobacco? Never used smokeless tobacco [id number] Information not available 02/27/2020 Are you currently employed? No retired 2018 Information not available 02/29/2020 Are you able to walk independently without assistance or assistive devices? YESWOREST [email or web address] Information not available 04/15/2023 Are you able to care for yourself independently? 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 Never used electronic cigarettes [id number] Information not available 02/27/2020 What is your exercise level? Occasional [id number] Information not available 02/27/2020 Mental Status None [...] History Condition Response Gout N Other N Kidney Stones N Blood Diseases N Hyperthyroidism N Breast Cancer N Hypothyroidism N Lung Disease N Depression N COPD N Defects or Inherited Disease N Anesthesia Complications N Headaches/Migraines N Anxiety Disorder N Varicose Veins N Obesity N Vision or Eye Problems N Arthritis N Head Injury/Concussion N Infertility N Polyps N Congenital Anomalies N Acid Reflux (GERD) N Cancer N Stroke N ADHD N Endometriosis N High Cholesterol N Liver Disease N Fibromyalgia N Kidney Disease N Heart Problems N Ear or Hearing Problems N Hospitalizations N Thyroid Problems N GI Problems N Acne N Eating Disorder N Skin Problems N Anemia N Constipation N Bladder Problems N Mental Illness N Diabetes N Ovarian Cancer N Blood Transfusions N Seizures/Epilepsy N Tuberculosis N AIDS/HIV N Congestive Heart Failure (CHF) N Eczema N Abuse/Domestic Violence N Diverticulitis N Asthma N Allergies N Reflux/GERD N Hepatitis N Pulmonary Embolism N Hypertension N Chicken Pox N Autism Spectrum Disorder (ASD) N Osteoporosis N Immunizations Vaccine Type Date Status Note Provider Nam e and Address Organization Details Recorded Time Td (adult), 5 Lf tetanus toxoid, preservative free, adsorbed 3 [facility]14[facility]2019 11:48:52 influenza, seasonal, intradermal, preservative free 5 completed [facility] 04/15/2023 10:53:20 Influenza, high-dose, trivalent, PF 5 completed EMMIE [place] [facility] 04/14/2022 13:55:24 Influenza, high-dose, trivalent, PF 6 completed EMMIE [place] [facility] 04/14/2022 13:55:25 zoster recombinant 8 completed EMMIE [place] [facility] 04/14/2022 13:55:25 Influenza, high-dose, trivalent, PF 8 completed EMMIE [place] [facility] 04/14/2022 13:55:25 zoster recombinant 8 completed EMMIE [place], [facility] 04/14/2022 13:55:25 Influenza, high-dose, trivalent, PF 9 completed [facility] 12/14/2019 11:48:52 Influenza, high-dose, quadrivalent, PF 0 completed EMMIE [place], [facility] 04/14/2022 13:55:24 COVID-19, mRNA, LNP-S, PF, 30 mcg/0.3 mL dose 1 completed [facility] 04/10/2021 09:08:21 COVID-19, mRNA, LNP-S, PF, 30 mcg/0.3 mL dose 1 completed [facility] 07/29/2021 14:23:56 COVID-19, mRNA, LNP-S, PF, 30 mcg/0.3 mL dose 1 completed EMMIE Horta, [facility] 04/15/2023 10:53:19 Influenza, high-dose, quadrivalent, PF 2 completed EMMIE Horta, [facility] 04/15/2023 10:53:19 Influenza, high-dose, quadrivalent, PF 1 completed EMMIE Horta, [facility] 04/15/2023 10:53:19 Influenza, high-dose, quadrivalent, PF 3 completed EMMIE Horta, [facility] 04/15/2023 10:53:19 Pneumococcal conjugate PCV20, polysaccharide [id number] conjugate, adjuvant, PF 3 completed [facility] 04/15/2023 10:53:19 COVID-19, mRNA, LNP-S, PF, 30 mcg/0.3 mL dose, cole-sucrose 2 completed EMMIE Horta, [facility] 04/15/2023 10:53:19 COVID-19, mRNA, LNP-S, bivalent, PF, 30 mcg/0.3 mL dose 3 completed [facility] 04/15/2023 10:53:19 COVID-19, mRNA, LNP-S, bivalent, PF, 30 mcg/0.3 mL dose 2 completed [facility] 04/15/2023 10:53:19 RSV, bivalent, protein subunit RSVpreF, diluent reconstituted, 0.5 mL, PF 3 completed [facility] 04/15/2023 10:53:19 Influenza, high-dose, trivalent, PF 7 completed EMMIE Horta, [facility] 04/15/2023 10:53:19 Influenza, split virus, trivalent, preservative 4 completed [facility] 04/15/2023 10:53:19 Influenza, split virus, trivalent, preservative 0 completed [facility] 04/15/2023 10:53:19 Influenza, split virus, trivalent, preservative 1 completed [facility] 04/15/2023 10:53:19 Pneumococcal conjugate PCV 13 6 completed Not Available [facility] 05/13/2019 02:21:36 COVID-19, mRNA, LNP-S, PF, cole-sucrose, 30 mcg/0.3 mL 3 completed [facility] 06/19/2024 15:23:23 Influenza, high-dose, trivalent, PF 4 completed Rosie Guevara MA null, [facility] 06/19/2024 15:23:23 COVID-19, mRNA, LNP-S, PF, cole-sucrose, 30 mcg/0.3 mL 4 completed Josiane Wallace null, [facility] 05/03/2024 09:25:42 COVID-19, mRNA, LNP-S, PF, cole-sucrose, 30 mcg/0.3 mL 5 completed Not Available [facility] 03/20/2025 15:27:41 Influenza, adjuvanted, trivalent, PF 5 completed Not Available [facility] 03/20/2025 15:27:41 pneumococcal polysaccharide PPV23 7 completed Not Available [facility] 05/13/2019 02:21:26 Influenza, split virus, trivalent, preservative 7 completed Josiane Wallace null, [facility] 12/14/2019 11:48:52 Td (adult), 5 Lf tetanus toxoid, preservative free, adsorbed 7 completed Josiane Wallace null, [facility] 12/14/2019 11:48:52 Influenza, split virus, trivalent, preservative 8 completed Josiane Wallace null, [facility] 12/14/2019 11:48:52 Influenza, split virus, trivalent, preservative 2 completed Josiane Wallace null, [facility] 12/14/2019 11:48:52 zoster live 2 completed EMMIE Horta, [facility] 04/15/2023 10:53:19 influenza, seasonal, intradermal, preservative free 3 completed Josiane Wallace null, [facility] 12/14/2019 11:48:52 Tdap 3 completed Josiane Wallace null, [facility] 12/14/2019 11:48:52 Td (adult), 2 Lf tetanus toxoid, preservative free, adsorbed 3 completed Raghav Brock MD [address] [address], [place], [address], [facility] 04/16/2023 12:05:52 Past Encounters Encounter ID Performer Location Encounter Start Date Encounter Closed Date Diagnosis/Indication Diagnosis SNOMED-CT Code Diagnosis ICD10 Code Diagnosis IMO Codes Diagnosis Note [id number] Nader Paredes MD Main Office [address] [address] 02/26/2025 09:00:13 02/26/2025 10:00:20 Cervical radiculopathy 10610783 M54.12 [id number] see above - ? has cervical radiculopa thytrial c gbn 4.25 - seen by pmr - had mri, emg - f/u prn - encouraged pt to f/u if worseno tolerate gbnconside r aleve c prn tyl 11.25 - pt's sxs getting worse = advised pt to f/u c pmr Peripheral venous insufficiency 88783307 I87.2 79622 rec elevated prn, rec comp socksif worse then consider vein specialist eval Bilateral carpal tunnel syndrome [id number] 1286992 G56.03 862494 L>R - ? CTS - will get hand specialist eval 4.25 - seen by hand specialist - rev note in pvix - cont splint o/n, f/u in several weeks, consider sx if worse 11.25 - encouraged pt to f/u c hand specialist as well Health Concerns Section Related Observation LastModified by Organization Detai ls LastModified Time None Recorded Concern Status LastModified by Organization Details LastModified Time None Recorded Payers Encounter Date Sequence Insurance Name Policy Number Policy Rbito Covered Member ID Brito Member ID Guarantor Name 02/26/[address] [facility] - PLAN 1 (MEDICARE SUPPLEMENT) [id number] 1 Donta Sarmiento Jr [id number] Donta Sarmiento 02/26/2025 1 MEDICARE [place]: [employer] Donta Sarmiento Jr [id number] Donta Sarmiento Notes Date Note Type Note Provider Name and Address Organization Details Recorded Time 02/26/2025 text/html here for f/u visit - B wrist tingling getting worsereviewed portfolio consultant notesno tolerate gbnc/o mild edema L>R LEc/o worsening L neck pain as well Tucker Olivo PA-C [address], [place], [address], [facility] 02/26/2025 12:58:43
== END 2025-03-27 14:45 | disposition home or self-care (01) ==
PROVIDERS: PCP Internal Medicine; Visit Provider Physician Assistant
DX: M54.12 Radiculopathy, cervical region (principal); M47.812 Spondylosis without myelopathy or radiculopathy, cervical region; G56.03 Carpal tunnel syndrome, bilateral upper limbs
CPT/HCPCS: 20526; 99213

== ENCOUNTER → 2025-03-27 14:12 | Outpatient (BNVA) | payer MEDICARE, OTHER, SELFPAY | PROVIDERS: PCP Internal Medicine; Visit Provider Physician Assistant | DX: G56.03 Carpal tunnel syndrome, bilateral upper limbs (principal); M47.812 Spondylosis without myelopathy or radiculopathy, cervical region | CPT/HCPCS: 20526; 99212; J3301 ==

== ENCOUNTER 2025-04-25 11:21 | Outpatient (AMB) | payer MEDICARE, OTHER, SELFPAY ==
--- OUTSIDE RECORDS SUMMARY | 2025-04-25 13:01 | XMS_ITS | Clinical Summary ---
Author Organization [employer] [facility] Prior to 09/23/24 Address [address] [place] [address] Care Team Providers Care [employer] Senior [employer] Name Role Phone Unavailable Primary Care Provider [...]
--- OUTSIDE RECORDS SUMMARY | 2025-04-25 13:01 | XMS_ITS | Continuity of Care Document ---
Author Organization [facility], Main Office Address [address] [place] [id number] Care Team Providers Care Radio Host Name Role Phone RAGHAV BROCK Primary Care Provider SHAWNEE GALLAGHER Retort Press Operator JADIEL HILL Furniture Sander DAYTON GUADARRAMA Urologist ROJELIO BARRY Urologist MELLISA SANCHEZ Appliance Assembler [facility] Referring Provider Assessment No assessment recorded. Plan of Treatment [...] By Organization Details Last Modified Time 02/26/2025 [id number] varicose veins: care instructions pmadden Not available 02/26/2025 09:54:25 leg and ankle edema: care instructions pmadden Not available 02/26/2025 09:54:25 Patient will follow up and keep appointment as scheduled. pmadden Not available 02/26/2025 12:58:29 Reason for Referral None Reported. Problems Name Problem SNOMED Code Status Onset Date Resolution Date Notes Provider Name and Address Organization Details Recorded Time Onychomy cosis 161386268 Active Not Available [facility] 0 11:38:13 Atherosc lerosis Active Not Available [facility] 0 11:38:13 Suspecte d COVID-19 [id number] Completed 02/18/2021 Removal Reason: Problem added by user estrella 5 from the COVID-19 watch flag [facility] 1 13:35:14 General examinat ion of patient Completed 200711/14/2013 RECORDED 09/02/19 08 9:24AM BY RAGHAV JOHNSON MD, ANNOTATI ON/ADDEN DUM Not Available [facility] 4 14:12:59 Administ ration of bacteria l and viral vaccine Completed 200711/14/2013 RECORDED 09/02/19 08 9:24AM BY RAGHAV JOHNSON MD, ANNOTATI ON/ADDEN DUM Not Available [facility] 4 14:12:59 Administ ration of diphther ia and tetanus vaccine Completed 200711/14/2013 RECORDED 09/02/19 08 9:24AM BY RAGHAV JOHNSON MD, ANNOTATI ON/ADDEN DUM Not Available [facility] 4 14:12:59 General examinat ion of patient Completed 200712/04/2013 RECORDED 09/02/19 08 9:24AM BY RAGHAV JOHNSON MD, ANNOTATI ON/ADDEN DUM Not Available [facility] 4 06:36:52 Administ ration of bacteria l and viral vaccine Completed 200712/04/2013 RECORDED 09/02/19 08 9:24AM BY RAGHAV JOHNSON MD, ANNOTATI ON/ADDEN DUM Not Available [facility] 4 06:36:52 Administ ration of diphther ia and tetanus vaccine Completed 200712/04/2013 RECORDED 09/02/19 08 9:24AM BY RAGHAV JOHNSON MD, ANNOTATI ON/ADDEN DUM Not Available [facility] 4 06:36:52 Inguinal hernia 900727125 Completed 200811/14/2013 RESOLVED DATE: 09/13/19 09; RECORDED 09/13/19 09 5:17PM BY RAGHAV JOHNSON MD, ANNOTATI ON/ADDEN DUM Not Available [facility] 4 14:12:59 Inguinal hernia 100114694 Completed 200812/04/2013 RESOLVED DATE: 09/13/19 09; RECORDED 09/13/19 09 5:17PM BY RAGHAV JOHNSON MD, ANNOTATI ON/ADDEN DUM Not Available [facility] 4 06:36:52 Hyperlip idemia 67018243 Completed 200911/14/2013 RECORDED 11/12/19 10 1:09PM BY ROSIE OTOOLE MA, ANNOTATI ON/ADDEN DUM EMMIE Aguirre, [facility] 8 09:01:30 Hyperlip idemia 39732039 Completed 200912/04/2013 RECORDED 11/12/19 10 1:09PM BY ROSIE OTOOLE MA, ANNOTATI ON/ADDEN DUM EMMIE Aguirre, [facility] 8 09:01:30 Lateral epicondy litis 908447391 Completed 201111/14/2013 RECORDED 12/16/19 12 12:55PM BY LASHAE TAYLOR ON/ADDEN DUM Not Available [facility] 4 14:12:59 Eruption [id number] Completed 201111/14/2013 RECORDED 12/16/19 12 12:54PM BY NINA TAYLORATI ON/ADDEN DUM Not Available [facility] 4 14:12:59 Adult health examinat ion Completed 201111/14/2013 RECORDED 12/16/19 12 12:54PM BY JEANIE LYN I ANNOTATI ON/ADDEN DUM Not Available [facility] 4 14:12:59 Lateral epicondy litis 572491515 Completed 201112/04/2013 RECORDED 12/16/19 12 12:55PM BY JEANIE SCHULTZK I, ANNOTATI ON/ADDEN DUM Not Available [facility] 4 06:36:52 Eruption [id number] Completed 201112/04/2013 RECORDED 12/16/19 12 12:54PM BY JEANIE LYN I ANNOTATI ON/ADDEN DUM Not Available [facility] 4 06:36:52 Adult health examinat ion Completed 201112/04/2013 RECORDED 12/16/19 12 12:54PM BY NINA TAYLORATI ON/ADDEN DUM Not Available [facility] 4 06:36:52 Influenz a vaccine needed [id number] 06 Completed 201311/14/2013 RECORDED 05/03/19 14 11:14AM BY RITCHIE HERNANDEZ MA, ANNOTATI ON/ADDEN DUM Not Available [facility] 4 14:12:59 Administ ration of diphther ia, pertussi s, and tetanus vaccine Completed 201311/14/2013 RECORDED 05/03/19 14 11:14AM BY RITCHIE HERNANDEZ MA, ANNOTATI ON/ADDEN DUM Not Available [facility] 4 14:13:00 Influenz a vaccine needed 43418300248 06 Completed 201312/04/2013 RECORDED 05/03/19 14 11:14AM BY RITCHIE HERNANDEZ MA, ANNOTATI ON/ADDEN DUM Not Available [facility] 4 06:36:52 Administ ration of diphther ia, pertussi s, and tetanus vaccine Completed 201312/04/2013 RECORDED 05/03/19 14 11:14AM BY RITCHIE HERNANDEZ MA, ANNOTATI ON/ADDEN DUM Not Available [facility] 4 06:36:53 Hyperpla bessy of prostate 583313555 Completed 201302/23/2019 Raghav Brock MD [address], [place], [address] , [facility] 9 14:55:02 Urinary tract obstruct ion 0985414 Completed 201304/10/2021 Removal Reason: John Brock MD [address], [place], [address] , [facility] 1 10:13:38 Benign prostati c hyperpla bessy 686412223 Active 2013 Bx was normal. Not Available [facility] 0 11:38:13 Lower urinary tract symptoms 125924690 Completed 201304/10/2021 Removal Reason: John Brock MD [address], [place], [address] , [facility] 1 10:13:29 Gastroes ophageal reflux disease 330657573 Completed 201311/14/2013 IMPRESSI ON: NEW ONSET GERD IN 62 YO. FURTHER ASSESSME NT BY GI, MAY NEED ENDOSCOP Y.; RECORDED 06/14/19 14 8:50AM BY JEANIE LYN I, ANNOTATI ON/ADDEN DUM Not Available [facility] 4 14:12:59 Pure hypercho lesterol emia 119320063 Completed 201311/26/2016 IMPRESSI ON: GOOD CONTROL WITH CURRENT MGMT; CONTINUE W/O CHANGE.; RECORDED 06/14/19 14 9:55AM BY RAGHAV JOHNSON MD, OFFICE VISIT Raghav Brock MD [address] [facility] [address], [place], [address] , [facility] 7 12:41:31 Patient status finding [id number] Completed 201307/30/2014 RECORDED 06/14/19 14 9:16AM BY JEANIE LYN I, OFFICE VISIT Raghav Brock MD [address] [address], [place], [address] , [facility] 5 11:32:30 Hyperlip idemia 89167414 Completed 201307/30/2014 RECORDED 06/14/19 14 9:15AM BY JEANIE LYN I, OFFICE VISIT Lore Dotson MA null, [facility] 8 09:01:30 Gastroes ophageal reflux disease 198200290 Completed 201312/04/2013 IMPRESSI ON: NEW ONSET GERD IN 62 YO. FURTHER ASSESSME NT BY GI, MAY NEED ENDOSCOP Y.; RECORDED 06/14/19 14 8:50AM BY LASHAE TAYLOR ON/LI DUM Not Available [facility] 4 06:36:52 Chest pain 08702352 Completed 201312/06/2017 Rosaura Reaves [facility] [address], [place], [address] , [facility] 5 09:28:08 Screenin g for malignan t neoplasm of colon Completed 201307/30/2014 RECORDED 07/25/19 14 2:01PM BY CHERYL DUBONIC AL SUMMARY Raghav Brock MD [address], [place], [address] , [facility] 5 11:32:30 Hyperlip idemia 94560540 Active 2016 Not Available [facility] 0 11:38:13 History of SARS-CoV -2 [id number] 6936010 Active 2021 Raghav Brock MD [address], [place], [address] , [facility], [place] 3 11:25:05 Tendinit is of wrist 556964807 Active 2024 Tucker Olivo PA-C [address], [place], [address] , [facility] 5 20:36:44 Cervical radiculo maribel 28058198 Active 2024 Tucker Olivo PA-C [address], [place], [address] , [facility], [place] [facility] 5 10:04:08 Chest pain 84195591 Active 2024 Rosaura Reaves, PASUP [address], [place], [address] , [facility] 5 09:28:08 Chest wall pain 047943041 Active 2024 Rosaura Reaves, PASJENNIE [address], [place], [address] , [facility] 5 09:40:01 Bilatera l carpal tunnel syndrome 56186669023 370759 Active 2024 Tucker Olivo PA-C [address], [place], [address] , [facility] 5 12:56:49 Problem Notes None recorded. Procedures Surgical History Date Name Laterality Status Provider Name and Address Organization Details Recorded Time 11/19/19 24 Colonoscopy completed Brianna Ashraf [facility] 11/19/2023 13:25:52 04/15/20 23 Advanced Care Planning completed Raghav Brock MD [address] [facility] [address] [facility] [address], [place], [address], [facility] 04/16/2023 12:10:31 02/29/20 20 Six-Item Cognitive Test completed Iesha Lagunas MA [facility] 02/29/2020 13:08:01 02/24/20 19 Mini-Cog Test completed Jeanie Velazquez [facility] 02/23/2019 14:14:54 12/07/19 18 Mini-Cog Test completed Lore Dotson MA [facility] 12/06/2017 09:06:18 12/04/19 17 Fall Risk Assessment completed Jeanie Velazquez [facility] 12/03/2016 10:25:02 12/04/19 17 Mini-Cog Test completed Jeanie Velazquez [facility] 12/03/2016 10:25:07 12/02/19 16 Fall Risk Assessment completed Lore Dotson MA [facility] 12/02/2015 14:39:00 12/02/19 16 Mini-Cog Test completed Lore Mccannsharlene EMMIE [facility] 12/02/2015 14:39:07 12/02/19 16 Advanced Care Planning completed Lore MccannsharleneEMMIE [facility] 12/02/2015 14:28:50 Hernia Repair completed Rgahav Brock MD [address] [address], [place], [address], [facility] 07/30/2014 11:36:27 Hydrocele Repair completed Jeanie Velazquez [facility] 04/27/2017 14:13:31 Imaging Results None recorded. Procedure [...] ne propionat e 50 mcg/actua tion nasal spray,taet pension 1 spray each nostril daily active [...] Available Not Available Not Available Fluzone High-Dose 0245-4719 (PF) 180 mcg/0.5 mL intramusc ular syringe 12/03 completed Not Available Not Available Not Available Fluzone High-Dose 8521-2237 (PF) 180 mcg/0.5 mL intramusc ular syringe [...] Updated DateTime 5 171.45 cm 24.8 kg/m2 06163.3 7 g 74 /min 95 % 98 [degF] 130/79 mm[Hg] Nannette Robb MA [facility] 5 09:06:55 Social History Question Answer Notes LastModified by Organizat ion Details LastModified Time Tobacco Smoking Status Never Smoker Not Available [facility] 02/27/2020 03:36:35 Do You Have An Advance Directive? No [id number] Information not available 02/27/2020 Is Blood Transfusion Acceptable In An Emergency? Yes [id number] Information not available 02/27/2020 What Is Your Level Of Caffeine Consumption? Moderate Tea [id number] Information not available 02/27/2020 How Much Tobacco Do You Chew? None [id number] Information not available 02/27/2020 What Type Of Diet Are You Following? REGULAR [id number] Information not available 02/27/2020 Which Illicit Or Recreational Drugs Have You Used? None [id number] Information not available 02/27/2020 Live Alone Or [...] Or Greater Than 100 Degrees Fahrenheit? No [email or web address] Information not available 02/29/2020 Are You Or Anyone In Your Household A Health Care Provider Or Emergency Responder? No [email or web address] Information not available 02/29/2020 To The Best Of Your Knowledge Have You Been In Close Proximity To Any Individual Who Tested Positive For COVID-19? No Information not available 02/29/2020 What Was The Date Of Your Most Recent Tobacco Screening? 04/21/2024 [email or web address] Information not available 04/21/2024 How Many Children Do You Have? 0 [id number] Information not available 02/27/2020 Do You Use Protection During Sex? No [id number] Information not available 02/27/2020 Seat Belts Used Routinely Yes Information not available 12/02/2015 Are You Sexually Active? Yes [id number] Information not available 02/27/2020 Smoke Alarm In Home Yes Information not available 12/02/2015 At What Age Did You Start Smoking Tobacco? 1 [id number] Information not available 02/27/2020 Are You Passively Exposed To Smoke? No Information not available 12/02/2015 How Much Tobacco Do You Smoke? No [id number] Information not available 02/27/2020 Do You Use Sunscreen Routinely? Yes [id number] Information not available 02/27/2020 How Many Years Have You Smoked Tobacco? 0 [id number] Information not available 02/27/2020 Sex: Unknown Functional Status Question Answer Note LastModified by Organizat ion Details LastModified Time What is your level of alcohol consumption? Occasional 2-3 beers in a week Information not available 02/29/2020 Do you or have you ever used smokeless tobacco? Never used smokeless tobacco [id number] Information not available 02/27/2020 Are you currently employed? No retired 2018 Information not available 02/29/2020 Are you able to walk independently without assistance or assistive devices? YESWOREST [email or web address] Information not available 04/15/2023 Are you able to care for yourself independently? 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 Never used electronic cigarettes [id number] Information not available 02/27/2020 What is your exercise level? Occasional [id number] Information not available 02/27/2020 Mental Status None [...] available 01/26 14:38:14 Medical History Condition Response Other N Gout N Blood Diseases N Kidney Stones N Hyperthyroidism N Breast Cancer N Hypothyroidism N Lung Disease N Depression N COPD N Defects or Inherited Disease N Anesthesia Complications N Headaches/Migraines N Varicose Veins N Anxiety Disorder N Obesity N Vision or Eye Problems [...] toxoid, preservative free, adsorbed 3 [facility] 11:48:52 influenza, seasonal, intradermal, preservative free 5 completed [facility] 04/15/2023 10:53:20 Influenza, high-dose, trivalent, PF 5 completed EMMIE Camarillo [facility] 04/14/2022 13:55:24 Influenza, high-dose, trivalent, PF 6 completed EMMIE Camarillo [facility] 04/14/2022 13:55:25 zoster recombinant 8 completed EMMIE Camarillo [facility] 04/14/2022 13:55:25 Influenza, high-dose, trivalent, PF 8 completed EMMIE Camarillo [facility] 04/14/2022 13:55:25 zoster recombinant 8 completed EMMIE Camarillo, [facility] 04/14/2022 13:55:25 Influenza, high-dose, trivalent, PF 9 [facility] 12/14/2019 11:48:52 Influenza, high-dose, quadrivalent, PF 0 completed EMMIE Camarillo, [facility] 04/14/2022 13:55:24 COVID-19, mRNA, LNP-S, PF, 30 mcg/0.3 mL dose 1 completed [facility] 04/10/2021 09:08:21 COVID-19, mRNA, LNP-S, PF, 30 mcg/0.3 mL dose 1 [facility] 07/29/2021 14:23:56 COVID-19, mRNA, LNP-S, PF, 30 mcg/0.3 mL dose 1 completed EMMIE Horta, [facility] 04/15/2023 10:53:19 Influenza, high-dose, quadrivalent, PF 2 completed EMMIE Horta, [facility] 04/15/2023 10:53:19 Influenza, high-dose, quadrivalent, PF 1 completed EMMIE Horta, [facility] 04/15/2023 10:53:19 Influenza, high-dose, quadrivalent, PF 3 completed EMMIE Horta, [facility] 04/15/2023 10:53:19 Pneumococcal conjugate PCV20, polysaccharide [id number] conjugate, adjuvant, PF 3 completed [facility] 04/15/2023 10:53:19 COVID-19, mRNA, LNP-S, PF, 30 mcg/0.3 mL dose, cole-sucrose 2 completed EMMIE Horta, [facility] 04/15/2023 10:53:19 COVID-19, mRNA, LNP-S, bivalent, PF, 30 mcg/0.3 mL dose 3 [facility] 04/15/2023 10:53:19 COVID-19, mRNA, LNP-S, bivalent, PF, 30 mcg/0.3 mL dose 2 completed [facility] 04/15/2023 10:53:19 RSV, bivalent, protein subunit RSVpreF, diluent reconstituted, 0.5 mL, PF 3 completed [facility] 04/15/2023 10:53:19 Influenza, high-dose, trivalent, PF 7 completed EMMIE Horta, [facility] 04/15/2023 10:53:19 Influenza, split virus, trivalent, preservative 4 completed [facility] 04/15/2023 10:53:19 Influenza, split virus, trivalent, preservative 0 completed [facility] 04/15/2023 10:53:19 Influenza, split virus, trivalent, preservative 1 completed [facility] 04/15/2023 10:53:19 Pneumococcal conjugate PCV 13 6 completed Not Available [facility] 05/13/2019 02:21:36 COVID-19, mRNA, LNP-S, PF, cole-sucrose, 30 mcg/0.3 mL 3 completed [facility] 06/19/2024 15:23:23 Influenza, high-dose, trivalent, PF 4 completed Rosie Guevara MA null, [facility] 06/19/2024 15:23:23 COVID-19, mRNA, LNP-S, PF, cole-sucrose, 30 mcg/0.3 mL 4 completed Josiane Wallace null, [facility] 05/03/2024 09:25:42 COVID-19, mRNA, LNP-S, PF, cole-sucrose, 30 mcg/0.3 mL 5 completed Not Available [facility] 03/20/2025 15:27:41 Influenza, adjuvanted, trivalent, PF 5 completed Not Available [facility] 03/20/2025 15:27:41 pneumococcal polysaccharide PPV23 7 completed Not Available [facility] 05/13/2019 02:21:26 Influenza, split virus, trivalent, preservative 7 completed Josiane Wallace null, [facility] 12/14/2019 11:48:52 Td (adult), 5 Lf tetanus toxoid, preservative free, adsorbed 7 completed Josiane Wallace null, [facility] 12/14/2019 11:48:52 Influenza, split virus, trivalent, preservative 8 completed Josiane Wallace null, [facility] 12/14/2019 11:48:52 Influenza, split virus, trivalent, preservative 2 completed Josiane Wallace null, [facility] 12/14/2019 11:48:52 zoster live 2 completed EMMIE Horta, [facility] 04/15/2023 10:53:19 influenza, seasonal, intradermal, preservative free 3 completed Josiane Wallace null, [facility] 12/14/2019 11:48:52 Tdap 3 completed Josiane Wallace null, [facility] 12/14/2019 11:48:52 Td (adult), 2 Lf tetanus toxoid, preservative free, adsorbed 3 completed Raghav Brock MD [address] [address], [place], [address], [facility] 04/16/2023 12:05:52 Past Encounters Encounter ID Performer Location Encounter Start Date Encounter Closed Date Diagnosis/Indication Diagnosis SNOMED-CT Code Diagnosis ICD10 Code Diagnosis IMO Codes Diagnosis Note [id number] Nader Paredes MD Main Office [address] [address] 02/26/2025 09:00:13 02/26/2025 10:00:20 Cervical radiculopathy 01107955 M54.12 [id number] see above - ? has cervical radiculopa thytrial c gbn 4.25 - seen by pmr - had mri, emg - f/u prn - encouraged pt to f/u if worseno tolerate gbnconside r aleve c prn tyl 11.25 - pt's sxs getting worse = advised pt to f/u c pmr Peripheral venous insufficiency 45954743 I87.2 31859 rec elevated prn, rec comp socksif worse then consider vein specialist eval Bilateral carpal tunnel syndrome [id number] 6174231 G56.03 [id number] L>R - ? CTS - will get [...] Brito Member ID Guarantor Name 02/26/2025 2 [facility] - PLAN 1 (MEDICARE SUPPLEMENT) [id number] Donta Sarmiento Jr [id number] Donta Sarmiento 02/26/2025 1 MEDICARE B-AL: [employer] Donta Sarmiento Jr [id number] Donta Sarmiento Notes Date Note Type Note Provider Name and Address Organization Details Recorded Time 02/26/2025 text/html here for f/u visit - B wrist tingling getting worsereviewed foreign law consultant notesno tolerate gbnc/o mild edema L>R LEc/o worsening L neck pain as well Tucker Olivo PA-C [address] [facility] [facility] [address], [place], [address], [facility] 02/26/2025 12:58:43
--- OUTSIDE RECORDS SUMMARY | 2025-04-25 13:01 | XMS_ITS | Continuity of Care Document ---
Author Organization [facility], Main Office Address [address] [place] [address] Care Team Providers Care Credit Department Manager Name Role Phone RAGHAV BROCK Primary Care Provider SHAWNEE GALLAGHER Primer Inserting Machine Operator JADIEL HILL Client Service Executive DAYTON GUADARRAMA Urologist ROJELIO BARRY Urologist MELLISA SANCHEZ Mainspring Strip Gauger [phone] [facility] Referring Provider Assessment No assessment recorded. Plan of Treatment Reminders Order Date Submit Date Provider Last Modified By Organization Details Last Modified Time Details Appointments AWV30 2025 10:30A M Raghav spangler MD Not available Not available Not available Lab None recorded. Referral behaviora l health referral 2024 025 [facility], [address] [place], [address], 03/20/2025 16:45:25 Procedures None recorded. Surgeries None recorded. Imaging None recorded. Medication Orders None recorded. Patient TargetsNo targets recorded. Patient InstructionsNo instructions recorded. Reason for Referral Behavioral Health Referral f or Difficulty coping Referring Physician: Raghav Brock, Family Medicine, Encounter Date: 03/20/2025 Problems Name Problem SNOMED Code Status Onset Date Resolution Date Notes Provider Name and Address Organization Details Recorded Time Onychomy cosis 980970268 Active Not Available [facility] 0 11:38:13 Atherosc lerosis Active Not Available [facility] 0 11:38:13 Suspecte d COVID-19 [id number] Completed 02/18/2021 Removal Reason: Problem added by user [email or web address] from the COVID-19 watch flag [facility] 1 13:35:14 General examinat ion of patient Completed 200711/14/2013 RECORDED 09/02/19 08 9:24AM BY RAGHAV JOHNSON MD, ANNOTATI ON/ADDEN DUM Not Available [facility] 4 14:12:59 Administ ration of bacteria l and viral vaccine Completed 200711/14/2013 RECORDED 09/02/19 08 9:24AM BY RAGHAV JOHNSON MD, ANNOTATI ON/ADDEN DUM Not Available [facility] 4 14:12:59 Administ ration of diphther ia and tetanus vaccine Completed 200711/14/2013 RECORDED 09/02/19 08 9:24AM BY RAGHAV JOHNSON MD, ANNOTATI ON/ADDEN DUM Not Available [facility] 4 14:12:59 General examinat ion of patient Completed 200712/04/2013 RECORDED 09/02/19 08 9:24AM BY RAGHAV JOHNSON MD, ANNOTATI ON/ADDEN DUM Not Available [facility] 4 06:36:52 Administ ration of bacteria l and viral vaccine Completed 200712/04/2013 RECORDED 09/02/19 08 9:24AM BY RAGHAV JOHNSON MD, ANNOTATI ON/ADDEN DUM Not Available [facility] 4 06:36:52 Administ ration of diphther ia and tetanus vaccine Completed 200712/04/2013 RECORDED 09/02/19 08 9:24AM BY RAGHAV JOHNSON MD, ANNOTATI ON/ADDEN DUM Not Available [facility] 4 06:36:52 Inguinal hernia [id number] Completed 200811/14/2013 RESOLVED DATE: 09/13/19 09; RECORDED 09/13/19 09 5:17PM BY RAGHAV JOHNSON MD, ANNOTATI ON/ADDEN DUM Not Available [facility] 4 14:12:59 Inguinal hernia 001356881 Completed 200812/04/2013 RESOLVED DATE: 09/13/19 09; RECORDED 09/13/19 09 5:17PM BY RAGHAV JOHNSON MD, ANNOTATI ON/ADDEN DUM Not Available [facility] 4 06:36:52 Hyperlip idemia 55527790 Completed 200911/14/2013 RECORDED 11/12/19 10 1:09PM BY ROSIE OTOOLE MA, ANNOTATI ON/ADDEN DUM [facility] 8 09:01:30 Hyperlip idemia 94052208 Completed 200912/04/2013 RECORDED 11/12/19 10 1:09PM BY ROSIE OTOOLE MA, ANNOTATI ON/ADDEN DUM EMMIE Aguirre, [facility] 8 09:01:30 Lateral epicondy litis 307865126 Completed 201111/14/2013 RECORDED 12/16/19 12 12:55PM BY LASHAE TAYLOR ON/ADDEN DUM Not Available [facility] 4 14:12:59 Eruption [id number] Completed 201111/14/2013 RECORDED 12/16/19 12 12:54PM BY NINA TAYLORATI ON/ADDEN DUM Not Available [facility] 4 14:12:59 Adult health examinat ion Completed 201111/14/2013 RECORDED 12/16/19 12 12:54PM BY JEANIE LYN I ANNOTATI ON/ADDEN DUM Not Available [facility] 4 14:12:59 Lateral epicondy litis 776830646 Completed 201112/04/2013 RECORDED 12/16/19 12 12:55PM BY JEANIE SCHULTZK I, ANNOTATI ON/ADDEN DUM Not Available [facility] 4 06:36:52 Eruption 560738832 Completed 201112/04/2013 RECORDED 12/16/19 12 12:54PM BY NINA TAYLORATI ON/ADDEN DUM Not Available [facility] 4 06:36:52 Adult health examinat ion Completed 201112/04/2013 RECORDED 12/16/19 12 12:54PM BY NINA TAYLORATI ON/ADDEN DUM Not Available [facility] 4 06:36:52 Influenz a vaccine needed [id number] 06 Completed 201311/14/2013 RECORDED 05/03/19 14 11:14AM BY RITCHIE HERNANDEZ MA, ANNOTATI ON/ADDEN DUM Not Available [facility] 4 14:12:59 Administ ration of diphther ia, pertussi s, and tetanus vaccine Completed 201311/14/2013 RECORDED 05/03/19 14 11:14AM BY RITCHIE HERNANDEZ MA, ANNOTATI ON/ADDEN DUM Not Available [facility] 4 14:13:00 Influenz a vaccine needed 25881846322 06 Completed 201312/04/2013 RECORDED 05/03/19 14 11:14AM BY RITCHIE HERNANDEZ MA, ANNOTATI ON/ADDEN DUM Not Available [facility] 4 06:36:52 Administ ration of diphther ia, pertussi s, and tetanus vaccine Completed 201312/04/2013 RECORDED 05/03/19 14 11:14AM BY RITCHIE HERNANDEZ MA, ANNOTATI ON/ADDEN DUM Not Available [facility] 4 06:36:53 Hyperpla bessy of prostate 548409824 Completed 201302/23/2019 Raghav Brock MD [address], [place], [address] , [facility] 9 14:55:02 Urinary tract obstruct ion 1234645 Completed 201304/10/2021 Removal Reason: John Brock MD [address], [place], [address] , [facility] 1 10:13:38 Benign prostati c hyperpla bessy 799817895 Active 2013 Bx was normal. Not Available [facility] 0 11:38:13 Lower urinary tract symptoms 695856548 Completed 201304/10/2021 Removal Reason: John Brock MD [address], [place], [address] , [facility] 1 10:13:29 Gastroes ophageal reflux disease 474151135 Completed 201311/14/2013 IMPRESSI ON: NEW ONSET GERD IN 62 YO. FURTHER ASSESSME NT BY GI, MAY NEED ENDOSCOP Y.; RECORDED 06/14/19 14 8:50AM BY JEANIE LYN I, ANNOTALLYSSA ON/ADDEN DUM Not Available [facility] 4 14:12:59 Pure hypercho lesterol emia 817331565 Completed 201311/26/2016 IMPRESSI ON: GOOD CONTROL WITH CURRENT MGMT; CONTINUE W/O CHANGE.; RECORDED 06/14/19 14 9:55AM BY RAGHAV JOHNSON MD, OFFICE VISIT Raghav Brock MD [address], [place], [address] , [facility] 7 12:41:31 Patient status finding [id number] Completed 201307/30/2014 RECORDED 06/14/19 14 9:16AM BY JEANIE LYN I, OFFICE VISIT Raghav Brock MD [address] [address], [place], [address] , [facility] 5 11:32:30 Hyperlip idemia 57306346 Completed 201307/30/2014 RECORDED 06/14/19 14 9:15AM BY JEANIE LYN I, OFFICE VISIT Lore Dotson MA null, [facility] 8 09:01:30 Gastroes ophageal reflux disease 953539625 Completed 201312/04/2013 IMPRESSI ON: NEW ONSET GERD IN 62 YO. FURTHER ASSESSME NT BY GI, MAY NEED ENDOSCOP Y.; RECORDED 06/14/19 14 8:50AM BY LASHAE TAYLOR ON/LI MCFADDEN Not Available [facility] 4 06:36:52 Chest pain 16199229 Completed 201312/06/2017 Rosaura Reaves [facility] [address], [place], [address] , [facility] 5 09:28:08 Screenin g for malignan t neoplasm of colon Completed 201307/30/2014 RECORDED 07/25/19 14 2:01PM BY IVETH BORGES, HISTORIC AL SUMMARY Raghav Brock MD [address], [place], [address] , [facility] 5 11:32:30 Hyperlip idemia 93719662 Active 2016 Not Available [facility] 0 11:38:13 History of SARS-CoV -2 83426060086 9120458 Active 2021 Raghav Brock MD [address], [place], [address] , [facility] 3 11:25:05 Tendinit is of wrist 102664234 Active 2024 Tucker Olivo PA-C [address], [place], [address] , [facility] 5 20:36:44 Cervical radiculo maribel 27187741 Active 2024 Tucker Olivo PA-C [address], [place], [address] , [facility] 5 10:04:08 Chest pain 63758617 Active 2024 Rosaura Reaves, [facility] [address], [place], [address] , [facility] 5 09:28:08 Chest wall pain 617838126 Active 2024 Rosaura Reaves, [facility] [address], [place], [address] , [facility] 5 09:40:01 Bilatera l carpal tunnel syndrome 62879078281 039113 Active 2024 Tucker Olivo PA-C [address], [place], [address] , [facility] 5 12:56:49 Problem Notes None recorded. Procedures Surgical History Date Name Laterality Status Provider Name and Address Organization Details Recorded Time 11/19/19 24 Colonoscopy completed Brianna Ashraf [facility] 11/19/2023 13:25:52 04/15/20 23 Advanced Care Planning completed Raghav Brock MD [address], [place], [address], [facility] 04/16/2023 12:10:31 02/29/20 20 Six-Item Cognitive Test completed Iesha Lagunas MA [facility] 02/29/2020 13:08:01 02/24/20 19 Mini-Cog Test completed Jeanie Velazquez [facility] 02/23/2019 14:14:54 12/07/19 18 Mini-Cog Test completed Lore Dotson MA [facility] 12/06/2017 09:06:18 12/04/19 17 Fall Risk Assessment completed Jeanie Velazquez [facility] 12/03/2016 10:25:02 12/04/19 17 Mini-Cog Test completed Jeanie Velazquez [facility] 12/03/2016 10:25:07 12/02/19 16 Fall Risk Assessment completed Lore Dotson MA [facility] 12/02/2015 14:39:00 12/02/19 16 Mini-Cog Test completed Lore Mccannsharlene EMMIE [facility] 12/02/2015 14:39:07 12/02/19 16 Advanced Care Planning completed Lore Saxenakendall EMMIE [facility] 12/02/2015 14:28:50 Hernia Repair completed Raghav Brock MD [address] [address], [place], [address], [facility] 07/30/2014 11:36:27 Hydrocele Repair completed Jeanie Velazquez [facility] 04/27/2017 14:13:31 Imaging Results None recorded. Procedure [...] Available Not Available Not Available Fluzone High-Dose 7407-7753 (PF) 180 mcg/0.5 mL intramusc ular syringe 12/03 completed Not Available Not Available Not Available Fluzone High-Dose 3211-9290 (PF) 180 mcg/0.5 mL intramusc ular syringe [...] Updated DateTime 5 171.45 cm 25.2 kg/m2 20073.5 6 g 92 /min 96 % 98.2 [degF] 138/86 mm[Hg] Nannette Robb MA [facility] 5 15:36:08 Social History Question Answer Notes LastModified by Organizat ion Details LastModified Time Tobacco Smoking Status Never Smoker Not Available [facility] 02/27/2020 03:36:35 Do You Have An Advance Directive? No [id number] Information not available 02/27/2020 Is Blood Transfusion Acceptable In An Emergency? Yes [id number] Information not available 02/27/2020 What Is Your Level Of Caffeine Consumption? Moderate Tea [id number] Information not available 02/27/2020 How Much Tobacco Do You Chew? None [id number] Information not available 02/27/2020 What Type Of Diet Are You Following? REGULAR [id number] Information not available 02/27/2020 Which Illicit Or Recreational Drugs Have You Used? None [id number] Information not available 02/27/2020 Live Alone Or [...] Or Greater Than 100 Degrees Fahrenheit? No [email or web address] Information not available 02/29/2020 Are You Or Anyone In Your Household A Health Care Provider Or Emergency Responder? No [email or web address] Information not available 02/29/2020 To The Best Of Your Knowledge Have You Been In Close Proximity To Any Individual Who Tested Positive For COVID-19? No [email or web address] Information not available 02/29/2020 What Was The Date Of Your Most Recent Tobacco Screening? 04/21/2024 [email or web address] Information not available 04/21/2024 How Many Children Do You Have? 0 [id number] Information not available 02/27/2020 Do You Use Protection During Sex? No [id number] Information not available 02/27/2020 Seat Belts Used Routinely Yes Information not available 12/02/2015 Are You Sexually Active? Yes [id number] Information not available 02/27/2020 Smoke Alarm In Home Yes Information not available 12/02/2015 At What Age Did You Start Smoking Tobacco? 1 [id number] Information not available 02/27/2020 Are You Passively Exposed To Smoke? No Information not available 12/02/2015 How Much Tobacco Do You Smoke? No [id number] Information not available 02/27/2020 Do You Use Sunscreen Routinely? Yes [id number] Information not available 02/27/2020 How Many Years Have You Smoked Tobacco? 0 [id number] Information not available 02/27/2020 Sex: Unknown Functional Status Question Answer Note LastModified by Organizat ion Details LastModified Time What is your level of alcohol consumption? Occasional 2-3 beers in a week Information not available 02/29/2020 Do you or have you ever used smokeless tobacco? Never used smokeless tobacco [id number] Information not available 02/27/2020 Are you currently employed? No retired 2018 Information not available 02/29/2020 Are you able to walk independently without assistance or assistive devices? YESWOREST [email or web address] Information not available 04/15/2023 Are you able to care for yourself independently? 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 Never used electronic cigarettes [id number] Information not available 02/27/2020 What is your exercise level? Occasional [id number] Information not available 02/27/2020 Mental Status None [...] History Condition Response Other N Gout N Kidney Stones N Blood Diseases N Hyperthyroidism N Breast Cancer N Depression [...] toxoid, preservative free, adsorbed 3 completed [facility]2019 11:48:52 influenza, seasonal, intradermal, preservative free 5 completed [facility]E [facility] 04/15/2023 10:53:20 Influenza, high-dose, trivalent, PF 5 completed EMMIE Camarillo [facility] 04/14/2022 13:55:24 Influenza, high-dose, trivalent, PF 6 completed EMMIE Camarillo [facility] 04/14/2022 13:55:25 zoster recombinant 8 completed EMMIE Camarillo [facility] 04/14/2022 13:55:25 Influenza, high-dose, trivalent, PF 8 completed EMMIE Camarillo [facility] 04/14/2022 13:55:25 zoster recombinant 8 completed EMMIE [place], [facility] 04/14/2022 13:55:25 Influenza, high-dose, trivalent, PF 9 completed [facility] 12/14/2019 11:48:52 Influenza, high-dose, quadrivalent, PF 0 completed EMMIE [place], [facility] 04/14/2022 13:55:24 COVID-19, mRNA, LNP-S, PF, 30 mcg/0.3 mL dose 1 completed [facility] 04/10/2021 09:08:21 COVID-19, mRNA, LNP-S, PF, 30 mcg/0.3 mL dose 1 completed [facility] 07/29/2021 14:23:56 COVID-19, mRNA, LNP-S, PF, 30 mcg/0.3 mL dose 1 completed EMMIE Horta, [facility] 04/15/2023 10:53:19 Influenza, high-dose, quadrivalent, PF 2 completed EMMIE Horta, [facility] 04/15/2023 10:53:19 Influenza, high-dose, quadrivalent, PF 1 completed EMMIE Horta, [facility] 04/15/2023 10:53:19 Influenza, high-dose, quadrivalent, PF 3 completed EMMIE Horta, [facility] 04/15/2023 10:53:19 Pneumococcal conjugate PCV20, polysaccharide [id number] conjugate, adjuvant, PF 3 completed [facility] 04/15/2023 10:53:19 COVID-19, mRNA, LNP-S, PF, 30 mcg/0.3 mL dose, cole-sucrose 2 completed EMMIE Horta, [facility] 04/15/2023 10:53:19 COVID-19, mRNA, LNP-S, bivalent, PF, 30 mcg/0.3 mL dose 3 completed [facility] 04/15/2023 10:53:19 COVID-19, mRNA, LNP-S, bivalent, PF, 30 mcg/0.3 mL dose 2 completed [facility] 04/15/2023 10:53:19 RSV, bivalent, protein subunit RSVpreF, diluent reconstituted, 0.5 mL, PF 3 completed [facility] 04/15/2023 10:53:19 Influenza, high-dose, trivalent, PF 7 completed EMMIE Horta, [facility] 04/15/2023 10:53:19 Influenza, split virus, trivalent, preservative 4 completed [facility] 04/15/2023 10:53:19 Influenza, split virus, trivalent, preservative 0 completed [facility] 04/15/2023 10:53:19 Influenza, split virus, trivalent, preservative 1 completed [facility] 04/15/2023 10:53:19 Pneumococcal conjugate PCV 13 6 completed Not Available [facility] 05/13/2019 02:21:36 COVID-19, mRNA, LNP-S, PF, cole-sucrose, 30 mcg/0.3 mL 3 completed [facility] 06/19/2024 15:23:23 Influenza, high-dose, trivalent, PF 4 completed Rosie Guevara MA null, [facility] 06/19/2024 15:23:23 COVID-19, mRNA, LNP-S, PF, cole-sucrose, 30 mcg/0.3 mL 4 completed Josiane Wallace null, [facility] 05/03/2024 09:25:42 COVID-19, mRNA, LNP-S, PF, cole-sucrose, 30 mcg/0.3 mL 5 completed Not Available [facility] 03/20/2025 15:27:41 Influenza, adjuvanted, trivalent, PF 5 completed Not Available [facility] 03/20/2025 15:27:41 pneumococcal polysaccharide PPV23 7 completed Not Available [facility] 05/13/2019 02:21:26 Influenza, split virus, trivalent, preservative 7 completed Josiane Wallace null, [facility] 12/14/2019 11:48:52 Td (adult), 5 Lf tetanus toxoid, preservative free, adsorbed 7 completed Josiane Wallace null, [facility] 12/14/2019 11:48:52 Influenza, split virus, trivalent, preservative 8 completed Josiane Wallace null, [facility] 12/14/2019 11:48:52 Influenza, split virus, trivalent, preservative 2 completed Josiane Wallace null, [facility] 12/14/2019 11:48:52 zoster live 2 completed EMMIE Horta, [facility] 04/15/2023 10:53:19 influenza, seasonal, intradermal, preservative free 3 completed Josiane Wallace null, [facility] 12/14/2019 11:48:52 Tdap 3 completed Josiane Wallace null, [facility] 12/14/2019 11:48:52 Td (adult), 2 Lf tetanus toxoid, preservative free, adsorbed 3 completed Raghav Brock MD [address] [address], [place], [address], [facility] 04/16/2023 12:05:52 Past Encounters Encounter ID Performer Location Encounter Start Date Encounter Closed Date Diagnosis/Indication Diagnosis SNOMED-CT Code Diagnosis ICD10 Code Diagnosis IMO Codes Diagnosis Note [id number] Nader Paredes MD Main Office [address] [address] 02/26/2025 09:00:13 02/26/2025 10:00:20 Cervical radiculopathy 56551369 M54.12 [id number] see above - ? has cervical radiculopa thytrial c gbn 4.25 - seen by pmr - had mri, emg - f/u prn - encouraged pt to f/u if worseno tolerate gbnconside r aleve c prn tyl 11.25 - pt's sxs getting worse = advised pt to f/u c pmr Peripheral venous insufficiency 66977891 I87.2 47268 rec elevated prn, rec comp socksif worse then consider vein specialist eval Bilateral carpal tunnel syndrome [id number] 5075408 G56.03 [id number] L>R - ? CTS - will get hand specialist eval 4.25 - seen by hand specialist - rev note in pvix - cont splint o/n, f/u in several weeks, consider sx if worse 11.25 - encouraged pt to f/u c hand specialist as well [id number] Raghav Brock MD Main Office [address] [address] 03/20/2025 15:27:02 03/20/2025 16:17:23 Difficulty coping 44542418 R45.89 [id number] He has some mild depression and feels that it is secondary to dealing with his 's behavior. He is not interested in meds but instead would like to see a counselor. He contacted [facility] and was told that he needed a referral from his PCP. Health Concerns Section Related Observation LastModified by Organization Detai ls LastModified Time None Recorded Concern Status LastModified by Organization Details LastModified Time None Recorded Payers Encounter Date Sequence Insurance Name Policy Number Policy Brito Covered Member ID Brito Member ID Guarantor Name 03/20/2025 2 [employer] - [employer]AN 1 (MEDICARE SUPPLEMENT) [id number] 1 Donta Sarmiento Jr [id number] Donta Sarmiento 03/20/2025 1 [place] [employer] Donta Sarmiento Jr [id number] Donta Sarmiento Notes Date Note Type [...] he is not interested. He called [facility] and was told that he needed a referral from his PCP. Raghav Brock MD [address] [address], [place], [address], [facility] 03/20/2025 17:25:00
--- OUTSIDE RECORDS SUMMARY | 2025-04-25 13:01 | XMS_ITS | Data Portability ---
Author Organization [facility], Main Office Address [address] [facility] [address] [place] [id number] Care Team Providers Care Plate Shop Helper Name Role Phone RAGHAV BROCK Primary Care Provider SHAWNEE ELLER Harness Fitter JADIEL HILL Senior Mobile Developer [phone] DAYTON GUADARRAMA Urologist [phone] ROJELIO BARRY Urologist MELLISA SANCHEZ Soil Conservation Technician [phone] [facility] Referring Provider [phone] Assessment No assessment recorded. Plan of Treatment Reminders Order Date Submit Date Provider Last Modified By Organization Details Last Modified Time Details Appointments [id number] 2025 10:30A M Raghav spangler MD Not available Not available Not available Lab magnes ium, serum or plasma 2024 025 [place] [facility] (Centralized Electronic Ordering - All Locations), Patient Can Go To The Location Of Their Choice, 08/22/2024 08:10:35 TSH, ultra- sensit leoncio, serum 2024 025 [place] [facility] (Centralized Electronic Ordering - All Locations), Patient Can Go To The Location Of Their Choice, 08/22/2024 08:10:34 BMP, serum or plasma 2024 025 [place] [facility] (Centralized Electronic Ordering - All Locations), Patient Can Go To The Location Of Their Choice, 08/22/2024 08:10:34 Referral behavi oral health referr al [address] [facility] - Adult Outpatient, [address] [place] [address], [id number], 03/20/2025 16:45:25 hand surgeo n referr al 2024 025 héctor Hart MD, [address] [place] [address] Dr, [address], [place], [address], 06/23/2024 13:51:14 Procedures None record ed. Surgeries None record ed. Imaging electr ocardi ogram 2024 025 [email or web address] In-Office Order, Internal Use Only DO Not Attach Compendium DO Not Attach Compendium, Do Not Delete/merge, [id number] 06/30/2024 09:50:29 XR, chest, 2 view - chest wall pain, left of sternu m/ left chest ICS 2024 025 [facility], [address] [place] [address], [address], 07/01/2024 06:07:49 XR, cervic al spine 2024 025 [email or web address] [facility], [address] [place] [address], [id number], 07/04/2024 09:27:04 Medication Orders gabape ntin 100 mg capsul e 2024 025 [email or web address] [id number], [address], [place], [id number], 02/26/2025 09:07:32 Patient TargetsNo targets recorded. Patient Instructions Encounter Date Encounter Id Patient Instructions Last Modified By Organization Details Last Modified Time 06/19/2024 [id number] pinched nerve in the neck: care instructions pmadden Not available 06/19/2024 20:44:26 tenosynovitis of the wrist: care instructions pmadden Not available 06/19/2024 20:36:54 take gabapentin at night x 3 nights, then twice daily x 3 days, then 3 times daily pmadden Not available 06/19/2024 15:59:57 Medications (OTC , herbal therapies, supplements) reviewed and reconciled with patient and or caregiver, including potential side effects, drug interactions, instructions, and the consequences of not taking medication. Reviewed potential barriers to medication adherence, such as side effects from medication or cost of medication. pmadden Not available 06/19/2024 21:31:17 06/30/2024 [id number] musculoskeletal chest pain: care instructions nbarrows Not available 07/10/2024 15:14:33 chest pain: care instructions nbarrows Not available 07/10/2024 15:14:33 To call or retur n for worsening or concerns [email or web address] Not available 06/30/2024 09:28:15 08/21/2024 [id number] Follow up as needed. pmadden Not available 08/21/2024 09:52:18 02/26/2025 [id number] varicose veins: care instructions pmadden Not available 02/26/2025 09:54:25 leg and ankle edema: care instructions pmadden Not available 02/26/2025 09:54:25 Patient will fol low up and keep appointment as scheduled. pmadden Not available 02/26/2025 12:58:29 Reason for Referral Hand Surgeon Referral for Te ndinitis of wrist Referring Physician: Tucker Olivo, Internal Medicine, Encounter Date: 06/19/2024 Behavioral Health Referral f or Difficulty coping Referring Physician: Raghav Brock, Family Medicine, Encounter Date: 03/20/2025 Results Created Date Observation Date Name Description Value Unit Range Abnormal Flag Note LastModifiedBy Organization Detail LastModifiedTime 08/22/1908/22/2024 BASIC METAB OLIC PANEL (8) glucose 108 mg/dL 70-99 above high normal Not Available [facility] ([facility]) [address] [place], [address], 08/22/2024 08:10:34 08/22/19 25 08/22/2024 BASIC METAB OLIC PANEL (8) BUN 22 mg/dL 8-27 normal Not Available [facility] ([facility]) [address] [place], [address], 08/22/2024 08:10:34 08/22/1908/22/2024 BASIC METAB OLIC PANEL (8) creatinine 0.85 mg/dL 0.76-1 .27 normal Not Available [facility] ([facility]) [address] [facility] [place], [address], 08/22/2024 08:10:34 08/22/1908/22/2024 BASIC METAB OLIC PANEL (8) eGFR 91 mL/mi n/1.7 3 >59 normal Not Available [facility] ([facility]) [address] [facility] [place], [address], 08/22/2024 08:10:34 08/22/1908/22/2024 BASIC METAB OLIC PANEL (8) BUN/creatini ne ratio 26 10-24 above high normal Not Available [facility] ([facility]) [address] [facility] [place], [address], 08/22/2024 08:10:34 08/22/1908/22/2024 BASIC METAB OLIC PANEL (8) sodium 142 mmol/ L 134-14 4 normal Not Available [facility] ([facility]) [address] [facility] [place], [address], 08/22/2024 08:10:34 08/22/1908/22/2024 BASIC METAB OLIC PANEL (8) potassium 4.4 mmol/ L 3.5-5. 2 normal Not Available [facility] ([facility]) [address] [facility] [place], [address], 08/22/2024 08:10:34 08/22/1908/22/2024 BASIC METAB OLIC PANEL (8) chloride 107 mmol/ L 96-106 above high normal Not Available [facility] ([facility]) [address] [facility] [place], [address], 08/22/2024 08:10:34 08/22/19 25 08/22/2024 BASIC METAB OLIC PANEL (8) carbon dioxide, total 19 mmol/ L 20-29 below low normal Not Available [facility] ([facility]) [address] [facility], [place], [address], 08/22/2024 08:10:34 08/22/19 25 08/22/2024 BASIC METAB OLIC PANEL (8) calcium 9.2 mg/dL 8.6-10 .2 normal Not Available [facility] ([facility]) [address] [facility], [place], [address], 08/22/2024 08:10:34 08/22/19 25 08/22/2024 TSH RFX ON ABNOR MAL TO FREE T4 TSH 2.580 uIU/m L 0.450- 4.500 normal Not Available [facility] ([facility]) [address] [facility], [place], [address], 08/22/2024 08:10:34 08/22/19 25 08/22/2024 MAGNE SIUM magnesium 2.0 mg/dL 1.6-2. 3 normal Not Available [facility] ([facility]) [address] [facility], [place], [address], 08/22/2024 08:10:35 06/20/19 25 06/19/2024 XR, cervi anjel spine , 4 or 5 view Cervic al Spine 4 or 5 Views Reason : pain COMPAR JERMAN: None. FINDIN GS: No bone lesion s or fractu res. Normal odonto id and C1/2 relati onship . There is modera te to marked disc space narrow ing with minima l retrol isthes is and mild margin al osteop hyte format ion at C3-C4. There is modera te to marked disc space narrow ing and margin al osteop hyte format ion at C6-C7. There is scatte red uncove rtebra l joint arthro maribel. There is modera te neurof oramin al encroa chment at C3-C4 on the right side and bilate rally at C6-C7. Normal prever tebral soft tissue s and clear lung apices . IMPRES VIVI: Cervic al spondy losis C3-C4 and C6-C7 as descri bed above. WSN: [id number] Orderi ng Physic suzan: Miguel Olivo Dictat ed By: Pita El MD Dictat ed Date/T mitesh: 12:22 p Review ed By: Pita El MD H Signed By: Pita El MD Signed Date/T mitesh: 12:22 pm Transc ribed By: RIANA Transc ribed Date/T mitesh: 12:08 pm Patien t Class: Outpat ient [facility] (Outpt Imaging) [address] [place] [address], [address], 06/20/2024 15:27:45 07/01/19 25 06/30/2024 elect jenny love am No observ ation record ed. pmadden In-Office Order Internal Use Only DO Not Attach Compendium DO Not Attach Compendium, Do Not Delete/merge, [id number] 08/21/2024 09:46:21 07/01/19 elect rocar diogr am No observ ation record ed. pmadden In-Office Order Internal Use Only DO Not Attach Compendium DO Not Attach Compendium, Do Not Delete/merge, [id number] 08/21/2024 09:46:21 07/02/1906/30/2024 XR, chest , 2 view No observ ation record ed. [facility] [place] [address], [address], 08/21/2024 09:46:21 07/02/1906/30/2024 imagi ng/matthew little tic resul t No observ ation record ed. [facility] [place] [address] [facility] [address], [place], [address], 08/21/2024 09:46:21 07/16/19 25 07/15/2024 radio logy overr ead* No observ ation record ed. [facility] (Medical Records) [address] [place], [address], 08/21/2024 09:46:21 07/16/19 25 07/15/2024 radio logy overr ead* No observ ation record ed. [facility] (Medical Records) [address] [place], [address], 08/21/2024 09:46:21 07/19/19 25 07/15/2024 MRI, cervi anjel spine , w/o contr ast No observ ation record ed. [facility] (Medical Records) [address] [place], [address], 08/21/2024 09:46:20 08/04/1908/02/2024 elect romyo gram + nerve condu ction study No observ ation record ed. [facility] [address] [place] [address], [address], 08/21/2024 09:46:20 Result Notes Documentation Provider Name and Address Organization Details Recorded Time Xr, Cervical Spine, 4 Or 5 View : Cervical Spine 4 or 5 Views Reason: pain COMPARISON: None. FINDINGS: No bone lesions or fractures. Normal odontoid and C1/2 relationship. There is moderate to marked disc space narrowing with minimal retrolisthesis and mild marginal osteophyte formation at C3-C4. There is moderate to marked disc space narrowing and marginal osteophyte formation at C6-C7. There is scattered uncovertebral joint arthropathy. There is moderate neuroforaminal encroachment at C3-C4 on the right side and bilaterally at C6-C7. Normal prevertebral soft tissues and clear lung apices. IMPRESSION: Cervical spondylosis C3-C4 and C6-C7 as described above. WSN: [id number] Ordering Physician: Tucker Olivo Dictated By: Terry Martino MD Dictated Date/Time: 06/20/24 12:22 p Reviewed By: Terry Martino MD Signed By: Terry Martino MD Signed Date/Time: 06/20/24 12:22 pm Transcribed By: RIANA Transcribed Date/Time: 06/20/24 12:08 pm Patient Class: Outpatient Tucker Olivo PA-C [address] [address], [place], [address], [facility] 06/20/2024 15:05:29 Problems Name Problem SNOMED Code Status Onset Date Resolution Date Notes Provider Name and Address Organization Details Recorded Time Onychomy cosis 339033217 Active Not Available [facility] 0 11:38:13 Atherosc lerosis Active Not Available [facility] 0 11:38:13 Suspecte d COVID-19 661362793 Completed 02/18/2021 Removal Reason: Problem added by user [email or web address] 5 from the COVID-19 watch flag Melly Cardoza kika, [facility] 1 13:35:14 General examinat ion of patient Completed 200711/14/2013 RECORDED 09/02/19 08 9:24AM BY RAGHAV JOHNSON MD, ANNOTATI ON/ADDEN DUM Not Available [facility] 4 14:12:59 Administ ration of bacteria l and viral vaccine Completed 200711/14/2013 RECORDED 09/02/19 08 9:24AM BY RAGHAV JOHNSON MD, ANNOTATI ON/ADDEN DUM Not Available [facility] 4 14:12:59 Administ ration of diphther ia and tetanus vaccine Completed 200711/14/2013 RECORDED 09/02/19 08 9:24AM BY RAGHAV JOHNSON MD, ANNOTATI ON/ADDEN DUM Not Available [facility] 4 14:12:59 General examinat ion of patient Completed 200712/04/2013 RECORDED 09/02/19 08 9:24AM BY RAGHAV JOHNSON MD, ANNOTATI ON/ADDEN DUM Not Available [facility] 4 06:36:52 Administ ration of bacteria l and viral vaccine Completed 200712/04/2013 RECORDED 09/02/19 08 9:24AM BY RAGHAV JOHNSON MD, ANNOTALLYSSA ON/ADDEN DUM Not Available [facility] 4 06:36:52 Administ ration of diphther ia and tetanus vaccine Completed 200712/04/2013 RECORDED 09/02/19 08 9:24AM BY RAGHAV JOHNSON MD, ANNOTATI ON/ADDEN DUM Not Available [facility] 4 06:36:52 Inguinal hernia 767824797 Completed 200811/14/2013 RESOLVED DATE: 09/13/19 09; RECORDED 09/13/19 09 5:17PM BY RAGHAV JOHNSON MD, ANNOTATI ON/ADDEN DUM Not Available [facility] 4 14:12:59 Inguinal hernia 542208737 Completed 200812/04/2013 RESOLVED DATE: 09/13/19 09; RECORDED 09/13/19 09 5:17PM BY RAGHAV JOHNSON MD, ANNOTALLYSSA ON/ADDEN DUM Not Available [facility] 4 06:36:52 Hyperlip idemia 33363386 Completed 200911/14/2013 RECORDED 11/12/19 10 1:09PM BY ROSIE OTOOLE MA, ANNOTALLYSSA ON/ADDEN DUM [facility] 8 09:01:30 Hyperlip idemia 61172923 Completed 200912/04/2013 RECORDED 11/12/19 10 1:09PM BY ROSIE OTOOLE MA ANNOTATI ON/ADDEN DUM [facility] 8 09:01:30 Lateral epicondy litis 707753401 Completed 201111/14/2013 RECORDED 12/16/19 12 12:55PM BY LASHAE TAYLOR ON/ADDEN DUM Not Available [facility] 4 14:12:59 Eruption 051754302 Completed 201111/14/2013 RECORDED 12/16/19 12 12:54PM BY LASHAE TAYLOR ON/ADDEN DUM Not Available [facility] 4 14:12:59 Adult health examinat ion Completed 201111/14/2013 RECORDED 12/16/19 12 12:54PM BY NINA TAYLORATI ON/ADDEN DUM Not Available [facility] 4 14:12:59 Lateral epicondy litis 736809563 Completed 201112/04/2013 RECORDED 12/16/19 12 12:55PM BY NINA TAYLORATI ON/ADDEN DUM Not Available [facility] 4 06:36:52 Eruption 050141188 Completed 201112/04/2013 RECORDED 12/16/19 12 12:54PM BY NINA TAYLORATI ON/ADDEN DUM Not Available [facility] 4 06:36:52 Adult health examinat ion Completed 201112/04/2013 RECORDED 12/16/19 12 12:54PM BY LASHAE TAYLOR ON/ADDEN DUM Not Available [facility] 4 06:36:52 Influenz a vaccine needed 66961767370 06 Completed 201311/14/2013 RECORDED 05/03/19 14 11:14AM BY RITCHIE HERNANDEZ MA, LASHAE ON/ADDEN DUM Not Available [facility] 4 14:12:59 Administ ration of diphther ia, pertussi s, and tetanus vaccine Completed 201311/14/2013 RECORDED 05/03/19 14 11:14AM BY RITCHIE HERNANDEZ MA, LASHAE ON/ADDEN DUM Not Available [facility] 4 14:13:00 Influenz a vaccine needed 42754801822 06 Completed 201312/04/2013 RECORDED 05/03/19 14 11:14AM BY RITCHIE HERNANDEZ MA, LASHAE ON/ADDEN DUM Not Available [facility] 4 06:36:52 Administ ration of diphther ia, pertussi s, and tetanus vaccine Completed 201312/04/2013 RECORDED 05/03/19 14 11:14AM BY RITCHIE DAVID, MA, ANNOTATI ON/ADDEN DUM Not Available [facility] 4 06:36:53 Hyperpla bessy of prostate 218292938 Completed 201302/23/2019 Raghav Brock MD [address], [place], [address] , [facility] 9 14:55:02 Urinary tract obstruct ion 4355971 Completed 201304/10/2021 Removal Reason: John Brock MD [address], [place], [address] , [facility] 1 10:13:38 Benign prostati c hyperpla bessy 745527997 Active 2013 Bx was normal. Not Available [facility] 0 11:38:13 Lower urinary tract symptoms 935554965 Completed 201304/10/2021 Removal Reason: John Brock MD [address], [place], [address] , [facility] 1 10:13:29 Gastroes ophageal reflux disease 907680923 Completed 201311/14/2013 IMPRESSI ON: NEW ONSET GERD IN 62 YO. FURTHER ASSESSME NT BY GI, MAY NEED ENDOSCOP Y.; RECORDED 06/14/19 14 8:50AM BY JEANIE LYN I ANNOTATI ON/ADDEN DUM Not Available [facility] 4 14:12:59 Pure hypercho lesterol emia 608201482 Completed 201311/26/2016 IMPRESSI ON: GOOD CONTROL WITH CURRENT MGMT; CONTINUE W/O CHANGE.; RECORDED 06/14/19 14 9:55AM BY RAGHAV JOHNSON MD, OFFICE VISIT Raghav Brock MD [address], [place], [address] , [facility] 7 12:41:31 Patient status finding 671901991 Completed 201307/30/2014 RECORDED 06/14/19 14 9:16AM BY JEANIE LYN I, OFFICE VISIT Raghav Brock MD [address], [place], [address] , [facility] 5 11:32:30 Hyperlip idemia 11670480 Completed 201307/30/2014 RECORDED 06/14/19 14 9:15AM BY JEANIE LYN I, OFFICE VISIT Lore Dotson MA null, [facility] 8 09:01:30 Gastroes ophageal reflux disease 875510034 Completed 201312/04/2013 IMPRESSI ON: NEW ONSET GERD IN 62 YO. FURTHER ASSESSME NT BY GI, MAY NEED ENDOSCOP Y.; RECORDED 06/14/19 14 8:50AM BY JEANIE LYN I, ANNOTATI ON/ADDEN DUM Not Available [facility] 4 06:36:52 Chest pain 02223197 Completed 201312/06/2017 Rosaura Reaves [facility] [address], [place], [address] , [facility] 5 09:28:08 Screenin g for malignan t neoplasm of colon Completed 201307/30/2014 RECORDED 07/25/19 14 2:01PM BY IVETH BORGES, CHERYLIC AL SUMMARY Raghav Brock MD [address], [place], [address] , [facility] 5 11:32:30 Hyperlip idemia 58245384 Active 2016 Not Available [facility] 0 11:38:13 History of SARS-CoV -2 04147235983 9780047 Active 2021 Raghav Brock MD [address], [place], [address] , [facility] 3 11:25:05 Tendinit is of wrist 159053164 Active 2024 Tucker Olivo PA-C [address], [place], [address] , [facility] 5 20:36:44 Cervical radiculo maribel 98218215 Active 2024 Tucker Olivo PA-C [address], [place], [address] , [facility] 5 10:04:08 Chest pain 95437067 Active 2024 FARA Hager [address], [place], [address] , [facility] 5 09:28:08 Chest wall pain 429774171 Active 2024 FARA Hager [address], [place], [address] , [facility] 5 09:40:01 Bilatera l carpal tunnel syndrome 20911011968 075886 Active 2024 Tucker Olivo PA-C [address], [place], [address] , [facility] 5 12:56:49 Problem Notes None recorded. Procedures Surgical History Date Name Laterality Status Provider Name and Address Organization Details Recorded Time 11/19/19 24 Colonoscopy completed Brianna Ashraf [facility] 11/19/2023 13:25:52 04/15/20 23 Advanced Care Planning completed Raghav Brock MD [address], [place], [address], [facility] 04/16/2023 12:10:31 02/29/20 20 Six-Item Cognitive Test completed Iesha Lagunas MA [facility] 02/29/2020 13:08:01 02/24/20 19 Mini-Cog Test completed Jeanie Velazquez [facility] 02/23/2019 14:14:54 12/07/19 18 Mini-Cog Test completed Lore Dotson MA [facility] 12/06/2017 09:06:18 12/04/19 17 Fall Risk Assessment completed Jeanie Velazquez [facility] 12/03/2016 10:25:02 12/04/19 17 Mini-Cog Test completed Jeanie Velazquez [facility] 12/03/2016 10:25:07 12/02/19 16 Fall Risk Assessment completed Lore Dotson MA [facility] 12/02/2015 14:39:00 12/02/19 16 Mini-Cog Test completed Lore Dotson [facility] 12/02/2015 14:39:07 12/02/19 16 Advanced Care Planning completed Lore Dotson MA [facility] 12/02/2015 14:28:50 Hernia Repair completed Raghav Brock MD [address] [address], [place], [address], [facility] 07/30/2014 11:36:27 Hydrocele Repair completed Jeanie Velazquez [facility] 04/27/2017 14:13:31 Imaging Results None recorded. [...] 08 5:06PM BY RAGHAV JOHNSON MD, ANNOTATI ON/ADDEN DUM;DR. SÁNCHEZ Not Available Not Available Not [...] Available Not Available Not Available Fluzone High-Dose 0753-3938 (PF) 180 mcg/0.5 mL intramusc ular syringe 12/03 completed Not Available Not Available Not Available Fluzone High-Dose 6569-6553 (PF) 180 mcg/0.5 mL intramusc ular syringe 12/06 completed Not Available Not Available Not Available Fluzone High-Dose Quad 2019- (PF) 240 mcg/0.7 mL IM syringe ADM [...] Details Last Updated DateTime 5 171.45 cm 25.5 kg/m2 57983.7 4 g 78 /min 97 % 97.9 [degF] 120/71 mm[Hg] Rosie byrd MA [facility] 5 15:23:01 Date Recorded Body height Body mass index (BMI) Body weight Heart rate Oxygen saturation Body temperature Systolic And Diastolic Provider Name and Address Organization Details Last Updated DateTime 5 171.45 cm 25.5 kg/m2 89731.1 4 g 93 /min 94 % 98.3 [degF] 151/71 mm[Hg] Ambreen Kaufman MA [facility] 5 09:20:36 Date Recorded Body height Body mass index (BMI) Body weight Oxygen saturation Heart rate Body temperature Systolic And Diastolic Provider Name and Address Organization Details Last Updated DateTime 5 171.45 cm 25.6 kg/m2 04056.3 3 g 97 % 88 /min 98 [degF] 129/71 mm[Hg] Pattie Resendiz [facility] 5 09:22:21 Date Recorded Body height Body mass index (BMI) Body weight Heart rate Oxygen saturation Body temperature Systolic And Diastolic Provider Name and Address Organization Details Last Updated DateTime 5 171.45 cm 24.8 kg/m2 15853.3 7 g 74 /min 95 % 98 [degF] 130/79 mm[Hg] Nannette Robb MA [facility] 5 09:06:55 Date Recorded Body height Body mass index (BMI) Body weight Heart rate Oxygen saturation Body temperature Systolic And Diastolic Provider Name and Address Organization Details Last Updated DateTime 5 171.45 cm 25.2 kg/m2 21252.5 6 g 92 /min 96 % 98.2 [degF] 138/86 mm[Hg] Nannette Robb MA [facility] 5 15:36:08 Social History Question Answer Notes LastModified by Organizat ion Details LastModified Time Tobacco Smoking Status Never Smoker Not Available [facility] 02/27/2020 03:36:35 Do You Have An Advance Directive? No [id number] Information not available 02/27/2020 Is Blood Transfusion Acceptable In An Emergency? Yes [id number] Information not available 02/27/2020 What Is Your Level Of Caffeine Consumption? Moderate Tea [id number] Information not available 02/27/2020 How Much Tobacco Do You Chew? None [id number] Information not available 02/27/2020 What Type Of Diet Are You Following? REGULAR [id number] Information not available 02/27/2020 Which Illicit Or Recreational Drugs Have You Used? None [id number] Information not available 02/27/2020 Live Alone Or [...] Or Greater Than 100 Degrees Fahrenheit? No [email or web address] Information not available 02/29/2020 Are You Or Anyone In Your Household A Health Care Provider Or Emergency Responder? No Information not available 02/29/2020 To The Best Of Your Knowledge Have You Been In Close Proximity To Any Individual Who Tested Positive For COVID-19? No Information not available 02/29/2020 What Was The Date Of Your Most Recent Tobacco Screening? 04/21/2024 [email or web address] Information not available 04/21/2024 How Many Children Do You Have? 0 [id number] Information not available 02/27/2020 Do You Use Protection During Sex? No [id number] Information not available 02/27/2020 Seat Belts Used Routinely Yes Information not available 12/02/2015 Are You Sexually Active? Yes [id number] Information not available 02/27/2020 Smoke Alarm In Home Yes Information not available 12/02/2015 At What Age Did You Start Smoking Tobacco? 1 [id number] Information not available 02/27/2020 Are You Passively Exposed To Smoke? No Information not available 12/02/2015 How Much Tobacco Do You Smoke? No [id number] Information not available 02/27/2020 Do You Use Sunscreen Routinely? Yes [id number] Information not available 02/27/2020 How Many Years Have You Smoked Tobacco? 0 [id number] Information not available 02/27/2020 Sex: Unknown Functional Status Question Answer Note LastModified by Organizat ion Details LastModified Time What is your level of alcohol consumption? Occasional 2-3 beers in a week Information not available 02/29/2020 Do you or have you ever used smokeless tobacco? Never used smokeless tobacco [id number] Information not available 02/27/2020 Are you currently employed? No retired 2018 Information not available 02/29/2020 Are you able to walk independently without assistance or assistive devices? [email or web address] Information not available 04/15/2023 Are you able to care for yourself independently? 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 Never used electronic cigarettes [id number] Information not available 02/27/2020 What is your exercise level? Occasional [id number] Information not available 02/27/2020 Mental Status None [...] 14:37:59 Sister Motor vehicle accident victim 25 alex Not available 01/26 14:38:14 Medical History Condition Response Other N Gout N Blood Diseases N Kidney Stones N Hyperthyroidism N Breast Cancer N Lung Disease N COPD N Depression N Hypothyroidism N Defects or Inherited Disease [...] Problems N GI Problems N Acne N Skin Problems N Eating Disorder N Anemia N Constipation N Bladder Problems N Mental Illness N Ovarian Cancer N Diabetes N Blood Transfusions N Seizures/Epilepsy N Tuberculosis N AIDS/HIV N Congestive Heart Failure (CHF) N Eczema N Diverticulitis N Abuse/Domestic Violence N Allergies N Asthma N Reflux/GERD N Hepatitis N Pulmonary Embolism N Hypertension N Osteoporosis N Chicken Pox N Autism Spectrum Disorder (ASD) N Immunizations Vaccine Type Date Status Note Provider Nam e and Address Organization Details Recorded Time Td (adult), 5 Lf tetanus toxoid, preservative free, adsorbed 3 completed Josiane anand [facility] 12/14/2019 11:48:52 influenza, seasonal, intradermal, preservative free 5 completed EMMIE Horta [facility] 04/15/2023 10:53:20 Influenza, high-dose, trivalent, PF 5 completed EMMIE Camarillo [facility] 04/14/2022 13:55:24 Influenza, high-dose, trivalent, PF 6 completed EMMIE Camarillo [facility] 04/14/2022 13:55:25 zoster recombinant 8 completed EMMIE Camarillo [facility] 04/14/2022 13:55:25 Influenza, high-dose, trivalent, PF 8 completed EMMIE Camarillo [facility] 04/14/2022 13:55:25 zoster recombinant 8 completed EMMIE Camarillo, [facility] 04/14/2022 13:55:25 Influenza, high-dose, trivalent, PF 9 completed Josiane anand [facility] 12/14/2019 11:48:52 Influenza, high-dose, quadrivalent, PF 0 completed EMMIE Camarillo, [facility] 04/14/2022 13:55:24 COVID-19, mRNA, LNP-S, PF, 30 mcg/0.3 mL dose [facility] 09:08:21 COVID-19, mRNA, LNP-S, PF, 30 mcg/0.3 mL dose 1 completed Josiane anand [facility] 07/29/2021 14:23:56 COVID-19, mRNA, LNP-S, PF, 30 mcg/0.3 mL dose 1 [facility] 10:53:19 Influenza, high-dose, quadrivalent, PF 2 [facility] 10:53:19 Influenza, high-dose, quadrivalent, PF 1 [facility] 10:53:19 Influenza, high-dose, quadrivalent, PF 3 [facility] 10:53:19 Pneumococcal conjugate PCV20, polysaccharide [id number] conjugate, adjuvant, PF 3 [facility] 10:53:19 COVID-19, mRNA, LNP-S, PF, 30 mcg/0.3 mL dose, cole-sucrose 2 completed EMMIE Horta, [facility] 04/15/2023 10:53:19 COVID-19, mRNA, LNP-S, bivalent, PF, 30 mcg/0.3 mL dose 3 completed EMMIE Horta, [facility] 04/15/2023 10:53:19 COVID-19, mRNA, LNP-S, bivalent, PF, 30 mcg/0.3 mL dose 2 completed EMMIE Horta, [facility] 04/15/2023 10:53:19 RSV, bivalent, protein subunit RSVpreF, diluent reconstituted, 0.5 mL, PF 3 completed EMMIE Horta, [facility] 04/15/2023 10:53:19 Influenza, high-dose, trivalent, PF 7 completed EMMIE Horta, [facility] 04/15/2023 10:53:19 Influenza, split virus, trivalent, preservative 4 completed EMMIE Horta, [facility] 04/15/2023 10:53:19 Influenza, split virus, trivalent, preservative 0 completed EMMIE Horta, [facility] 04/15/2023 10:53:19 Influenza, split virus, trivalent, preservative 1 completed EMMIE Horta, [facility] 04/15/2023 10:53:19 Pneumococcal conjugate PCV 13 6 completed Not Available [facility] 05/13/2019 02:21:36 COVID-19, mRNA, LNP-S, PF, cole-sucrose, 30 mcg/0.3 mL 3 completed EMMIE Givens, [facility] 06/19/2024 15:23:23 Influenza, high-dose, trivalent, PF 4 completed Rosie Guevara MA null, [facility] 06/19/2024 15:23:23 COVID-19, mRNA, LNP-S, PF, cole-sucrose, 30 mcg/0.3 mL 4 completed Josiane Wallace null, [facility] 05/03/2024 09:25:42 COVID-19, mRNA, LNP-S, PF, cole-sucrose, 30 mcg/0.3 mL 5 completed Not Available [facility] 03/20/2025 15:27:41 Influenza, adjuvanted, trivalent, PF 5 completed Not Available [facility] 03/20/2025 15:27:41 pneumococcal polysaccharide PPV23 7 completed Not Available [facility] 05/13/2019 02:21:26 Influenza, split virus, trivalent, preservative 7 completed Josiane Rodrigo null, [facility] 12/14/2019 11:48:52 Td (adult), 5 Lf tetanus toxoid, preservative free, adsorbed 7 completed Josiane Wallace null, [facility] 12/14/2019 11:48:52 Influenza, split virus, trivalent, preservative 8 completed Josiane Wallace null, [facility] 12/14/2019 11:48:52 Influenza, split virus, trivalent, preservative 2 completed Josiane Wallace null, [facility] 12/14/2019 11:48:52 zoster live 2 completed EMMIE Horta, [facility] 04/15/2023 10:53:19 influenza, seasonal, intradermal, preservative free 3 completed Josianecelina anand, [facility] 12/14/2019 11:48:52 Tdap 3 completed Josiane anand, [facility] [place] 12/14/2019 11:48:52 Td (adult), 2 Lf tetanus toxoid, preservative free, adsorbed 3 completed Raghav Brock MD [address], [address], [facility] [place] 04/16/2023 12:05:52 Past Encounters Encounter ID Performer Location Encounter Start Date Encounter Closed Date Diagnosis/Indication Diagnosis SNOMED-CT Code Diagnosis ICD10 Code Diagnosis IMO Codes Diagnosis Note [id number] auto[facility]Comm erce [id number] [facility] [place] [address] 09/01/2006 00:00:00 [id number] auto[facility]Comm erce [id number] [facility] [place] [address] 03/09/2007 00:00:00 [id number] auto[facility]Comm erce [address] [facility] [place] [address] 07/26/2007 00:00:00 [id number] autoEComm erce [address] [facility] [place] [address] 09/07/2007 00:00:00 [id number] autoEComm erce [address] [facility] [place] [address] 03/09/2008 00:00:00 [id number] autoEComm erce [address] [facility] [place] [address] 09/12/2008 00:00:00 [id number] autoEComm erce [address] [facility] [place] [address] 03/13/2009 00:00:00 [id number] autoEComm erce [address] [facility] [place] [address] 11/11/2009 00:00:00 [id number] autoEComm erce [address] [facility] [place] [address] 11/12/2010 00:00:00 [id number] autoEComm erce [address] [facility] [place], [place] [address] 12/16/2011 00:00:00 [id number] autoEComm erce [address] [facility] [place], [place] [address] 12/20/2012 00:00:00 [id number] autoEComm erce [address] [facility] [place], [place] [address] 05/03/2013 00:00:00 [id number] autoEComm erce [address] [facility] [place], [place] [address] 06/14/2013 00:00:00 [id number] Raghav Brock MD Main Office [address] [address] [place] [address] 07/30/2014 10:51:53 07/30/2014 11:55:01 Adult health examination [id number] Pure hypercholesterolemia 676576452 [id number] Raghav Brock MD Main Office [address] [place] [address] [place] [address] 12/02/2015 14:22:26 12/02/2015 15:22:06 Adult health examination 021184724 Z00.00 UTD with colonoscop y. His PSA is followed by urology. We will up-date his immunizati ons today. At [facility] risk for falls 015126467 Z91.81 Advance di rective discussed with patient 151812843 Z71.89 Administra tion of pneumococcal vaccine 05729728 Z23 [id number] Tucker Olivo PA-C Main Office [address] [address] [place] [address] 01/13/2016 09:19:48 01/13/2016 10:30:49 Cellulitis of upper limb 942347810 L03.113 appears improved from what pt and ucc described [id number] Raghav Brock MD Main Office [address] [address] [place] [address] 12/03/2016 10:06:49 12/03/2016 11:18:23 Adult health examination 668157884 Z00.00 UTD with colonoscop y and due in 2019. His PSA is followed by urology. We will up-date his immunizati ons today. Administra tion of pneumococcal vaccine 22579637 Z23 Benign pro static hyperplasia 656108051 N40.1 Hyperlipidemia 54022047 E78.5 Impacted c erumen in left ear 8339257366 601792 H61.22 [id number] Raghav Brock MD Main Office [address] [address] [place] [address] 04/27/2017 14:08:39 04/27/2017 14:37:40 Cough 66225195 R05 Acute sinusitis 41787053 J01.90 Sciatica 47244956 M54.31 Try streches at home and call if persists and we will do a referral. Nasal congestion 0102625 0 R09.81 F/u with Dr Lozano. [id number] Raghav Brock MD Main Office [address] [address] [place] [address] 12/06/2017 08:51:59 12/06/2017 10:14:03 Adult health examination 784388921 Z00.00 UTD with colonoscop y and due in 2018. His PSA is followed by urology. He will get a shingles update at his pharmacy. Varicella vaccination 68 507504 Z23 Hyperlipidemia 56581839 E78.5 Benign pro static hyperplasia 805242408 N40.1 Followed by urology Impacted cerumen 8354970 6 H61.23 Palpitations 04041724 R0 0.2 [id number] Raghav Brock MD Main Office [address] [place] [address] 02/23/2019 13:56:52 02/23/2019 15:03:03 Adult health examination 395621690 Z00.00 UTD with colonoscop y and due in 2023. His PSA is followed by urology. He is UTD with immunizati ons including shingles. Hyperlipidemia 48690015 E78.5 Benign pro static hyperplasia 699407289 N40.1 Followed by urology Atherosclerosis 94709652 I70.90 followed by cardiology [id number] Raghav Brock MD Main Office [address] [place] [address] 06/19/2019 16:00:13 06/19/2019 17:01:49 Inguinal pain 572677917 R10.2 [id number] Raghav Brock MD Main Office [address] [place] [address] 02/29/2020 12:49:53 02/29/2020 13:42:04 Adult health examination 846942408 Z00.00 UTD with colonoscop y and due in 2023. His PSA is followed by urology. He is UTD with immunizati ons including shingles. Plantar fa sciitis of left foot [id number] 5961106 M72.2 Cramp in lower limb 4499 64015 R25.2 [id number] Raghav Brock MD Main Office [address] [address] [place] [address] 04/10/2021 09:01:01 04/10/2021 10:05:13 Adult health examination 002303991 Z00.00 UTD with colonoscop y and due in 2023. His PSA is followed by urology. He is UTD with immunizati ons including shingles, flu and COVID along with his booster. Benign pro static hyperplasia 959520461 N40.1 Followed by urology Hyperlipidemia 39106905 E78.5 Atherosclerosis 77462839 I70.90 followed by cardiology [id number] Raghav Brock MD Main Office [address] [address] [place] [address] 04/14/2022 13:39:38 04/14/2022 15:12:29 Adult health examination 953585673 Z00.00 UTD with colonoscop y and due in 2023. His PSA is followed by urology. He is UTD with immunizati ons including shingles, flu and COVID along with his booster. Benign pro static hyperplasia 000583155 N40.1 Followed by urology. Hyperlipidemia 53899802 E78.5 On meds. His last LDL was slightly above goal at 103. Will repeat. [id number] Raghav Brock MD Main Office [address] [address] 04/15/2023 10:45:44 04/15/2023 11:47:26 Adult health examination 074391810 Z00.00 UTD with colonoscop y and due in 2023. His PSA is followed by urology. He is UTD with immunizati ons including shingles, flu and COVID along with his booster. We will update his tetanus vaccine today Requires a tetanus booster 756999584 Z23 History of SARS-CoV-2 29 13178780 20079866 Z86.16 MIld symptoms. Hyperlipidemia 82048656 E78.5 On meds. His last LDL was slightly above goal at 103. Will repeat. Benign pro static hyperplasia 680904294 N40.1 Followed by urology. Atherosclerosis 17221265 I70.90 followed by cardiology Advance care planning 71 0086860 Z71.89 Discussed MOLST and HCP and forms given. [id number] Raghav Brock MD Main Office [address] [facility] [address] [place] [address] 04/21/2024 09:46:39 04/21/2024 10:51:53 Adult health examination 958000874 Z00.00 UTD with colonoscop y done October [address] Eller. Due again in 2028.His PSA is followed by urology.He is UTD with immunizati ons including shingles, pneumonia, tetanus, flu and COVID along with his boosters. Benign pro static hyperplasia 613342736 N40.1 Followed by urology. Hyperlipidemia 41153494 E78.5 On meds. His last LDL was slightly above goal at 103. Will repeat. Navarro's n euroma of right foot 7277030644 65802 G57.61 He will try home care and if no improvemen t he will make an appointmen t with a scientific specialist . Bursitis o f olecranon of right elbow 5244468686 48324 M70.21 [id number] Nader Paredes MD Main Office [address] [facility] [address] [place] [address] 06/19/2024 14:57:13 06/19/2024 16:10:35 Tendinitis of wrist 193766642 M67.839 L>R - ? CTS - will get hand specialist eval Neck pain 45398798 M54.2 check xray to r/o advanced OA - consider PMR vs ortho if significan t findings Cervical radiculopathy 47623468 M54.12 see above - ? has cervical radiculopa thytrial c gbn [id number] Raghav Brock MD Main Office [address] [facility] [address] [facility] [place] [address] 06/30/2024 09:05:43 06/30/2024 09:44:29 Chest pain 38965872 R07.9 EKG NSR, no concerns for cardiac cause of pain. denies SOB, dizziness, palpitatio ns, headaches, pain in back or between shoulder blades. suspect costochond ritis/ inflammati on ICS. may use ibuprofen as needed for 2-3 days, ice or heat as tolerated. Will check CXR as he has concern for fracture. [id number] Nader Paredes MD Main Office [address] [place] [address] 08/21/2024 09:13:37 08/21/2024 10:00:52 Cervical radiculopathy 70812605 M54.12 [id number] see above - ? has cervical radiculopa thytrial c gbn 4.25 - seen by pmr - had mri, emg - f/u prn - encouraged pt to f/u if worseno tolerate gbnconside r aleve c prn tyl Anterior c hest wall pain 738624367 R07.89 7683563 better, still happens occ - rec prn warm compressha d nl ekg last month Intermitte nt palpitations 501964930 R00.2 77236203 check labspendin g see card for f/u visit in 2 months Tendinosis of left wrist 3518782057 36403727 M67.834 M67.833 6586099641 L>R - ? CTS - will get hand specialist eval 4.25 - seen by hand specialist - rev note in pvix - cont splint o/n, f/u in several weeks, consider sx if worse [id number] Nader Paredes MD Main Office [address] [facility] [address] [place] [address] 02/26/2025 09:00:13 02/26/2025 10:00:20 Cervical radiculopathy 23880845 M54.12 [id number] see above - ? has cervical radiculopa thytrial c gbn 4.25 - seen by pmr - had mri, emg - f/u prn - encouraged pt to f/u if worseno tolerate gbnconside r aleve c prn tyl 11.25 - pt's sxs getting worse = advised pt to f/u c pmr Peripheral venous insufficiency 42434562 I87.2 82196 rec elevated prn, rec comp socksif worse then consider vein specialist eval Bilateral carpal tunnel syndrome 6608125836 0516734 G56.03 [id number] L>R - ? CTS - will get hand specialist eval 4.25 - seen by hand specialist - rev note in pvix - cont splint o/n, f/u in several weeks, consider sx if worse 11.25 - encouraged pt to f/u c hand specialist as well [id number] Raghav Brock MD Main Office [address] [facility] [address] [place] [address] 03/20/2025 15:27:02 03/20/2025 16:17:23 Difficulty coping 08451711 R45.89 [id number] He has some mild depression and feels that it is secondary to dealing with his 's behavior. He is not interested in meds but instead would like to see a counselor. He contacted [facility] and was told that he needed a referral from his PCP. Health Concerns Section Related Observation LastModified by Organization Detai ls LastModified Time None Recorded Concern Status LastModified by Organization Details LastModified Time None Recorded Advance Directives Directive N: Payers Insurance Date Sequence Insurance Name Policy Number Policy Brito Covered Member ID Brito Member ID Guarantor Name 03/20/2025 2 [facility] - PLAN 1 (MEDICARE SUPPLEMENT) [id number] Donta Sarmiento Jr [id number] Donta Sarmiento 03/20/2025 1 MEDICARE [place]: [employer] Donta Sarmiento Jr [id number] Donta Sarmiento 02/26/2025 1 [facility] (O) [id number] Donta Sarmiento [id number] Donta Sarimento 02/26/2025 1 [facility] - MEDICARE ADVANTAGE PLAN (MEDICARE REPLACEMENT HMO) [id number] Donta Sarmiento [id number] Donta Villasenornes Notes Date Note Type Note Provider Name and Address Organization Details Recorded Time 06/19/2024 text/html One week ago today, patient was shoveling snow right after it rained . The next day, he started having pain in both shoulders and arms L>R (left-handed). Then pain radiates down the arm and causes tingling in the fingers. No weakness in extremities.Patient has been taking ibuprofen and Tylenol PM - no sig help + h/o wrist tendinitis yrs ago - no problems since not sleeping well - cannot sleep on L side, but able to sleep on back / R sideinitially hands felt like they were on fire / tingling - alleviated by moving around, but persists - primarily c/o thisno neck pain Laina anand [facility] 06/26/2024 14:25:27 06/30/2024 text/html Generic HPI TemplateReported by PatientPatient reports one week ago-went to sneeze he felt a very sharp pain located in the left mid sternum. Has not had any discomfort since this episode. Denies any any other symptoms. can still pinpoint spot of sharp pain. he can tell the location, no pain. NO SOB, no palpitations, no dizziness, no headaches, he took it easy after that.Pain has not been as severe.No swelling legs, no recent travel. No SOB. Laina anand [facility] 07/10/2024 15:14:37 08/21/2024 text/html here for f/u visitreviewed applications sales consultant notesno tolerate gbncp better, but still bothers him if he sneezesocc gets palp Laina anand [facility] 09/01/2024 13:53:35 02/26/2025 text/html here for f/u visit - B wrist tingling getting worsereviewed applications sales consultant notesno tolerate gbnc/o mild edema L>R LEc/o worsening L neck pain as well Tucker Olivo PA-C [address] [address], [place], [address], [facility] 02/26/2025 12:58:43 03/20/2025 text/html Her is having a difficult [...] and he is not interested. He called [facility] and was told that he needed a referral from his PCP. Raghav Brock MD [address] [place] [address], [place], [address], [facility] 03/20/2025 17:25:00
== END 2025-04-25 11:22 | disposition home or self-care (01) ==
LOC: HO.HMGAL 11:22
PROVIDERS: PCP Internal Medicine; Visit Provider Registered Nurse Emergency
DX: J30.89 Other allergic rhinitis (principal)
CPT/HCPCS: 95117; 95165